=== PATIENT | male | born 1965 | race Caucasian/White ===

== ENCOUNTER 2017-04-06 03:49 | Inpatient (IN) ==
[2017-04-06] MEDS ORDERED: Aspirin 81 MG TAB.CHEW PO ONE (04:05)
[2017-04-06] MEDS ORDERED: Nitroglycerin 0.4 MG TAB.SUBL SL ONE (04:05)
[2017-04-06] MEDS ORDERED: Ondansetron 4 MG/2 ML VIAL IVP ONE (04:05)
--- NOTE | 2017-04-06 04:15 | Emergency Department Note ---
Disposition Clinical Impression: Epigastric pain Disposition: Admitted As Inpatient Condition: Fair Time of Disposition: 08:03 Chest Pain HPI - General Chief Complaint: ED Chest Pain Stated Complaint: chest pain Time Seen by Provider: 04/06/17 04:05 Source: patient, EMS Limitations: no limitations Vital Signs Reviewed: Yes Nursing Notes Reviewed: Yes - History of Present Illness Pt complaint: chest pain Onset (ago): Just [employer] Duration: constant Onset: during rest Pain Location: substernal Severity scale (1-10): 10 Pain Radiation: back Improves with: nothing Worsens with: inspiration Context: other (h/o CAD) Associated symptoms: Reports: nausea, vomiting, diaphoresis Treatments prior to arrival chest pain: none - Related Data Home Medications Medication Instructions Recorded Confirmed Amitriptyline [Elavil] 100 mg PO HS 04/06/17 04/06/17 Aspirin [Lo-Dose Aspirin EC] 81 mg PO DAILY 04/06/17 04/06/17 Atorvastatin Calcium [Lipitor] 80 mg PO HS 04/06/17 04/06/17 Citalopram [CeleXA] 20 mg PO DAILY 04/06/17 04/06/17 Clopidogrel [Plavix] 75 mg PO DAILY 04/06/17 04/06/17 Cyclobenzaprine HCl 5 mg PO TID PRN 04/06/17 04/06/17 Exenatide Microspheres [Bydureon 2 mg SQ MAST 04/06/17 04/06/17 Pen] Gabapentin [Neurontin] 600 mg PO BID 04/06/17 04/06/17 Insulin Glargine [Lantus] 50 unit SQ BID PRN 04/06/17 04/06/17 Lisinopril [Zestril] 10 mg PO DAILY 04/06/17 04/06/17 Metoprolol XL (24 HR) Succ [Toprol 25 mg PO DAILY 04/06/17 04/06/17 XL] hydrOXYzine HCl [Hydroxyzine HCl] 25 mg PO DAILY 04/06/17 04/06/17 Allergies Allergy/AdvReac Type Severity Reaction Status Date / Time No Known Allergies Allergy Verified 04/02/17 22:53 All systems ED: reviewed and negative except as stated. Constitutional: Denies: fever Eyes: Denies: eye discharge ENT ED: Denies: throat pain Cardiovascular: Reports: as per HPI. Denies: palpitations Respiratory: Reports: as per HPI Gastrointestinal: Denies: abdominal pain Genitourinary: Denies: dysuria Musculoskeletal: Reports: as per HPI. Denies: neck pain Integumentary: Denies: rash Neurological: Denies: headache Endocrine: Denies: fatigue Hematological/Lymphatic: Denies: easy bleeding Allergic/Immunologic: Denies: facial swelling Chest Pain PMH - Past Medical History Medical history: Reports: coronary artery disease, diabetes, myocardial infarction Psychiatric history: Reports: anxiety, depression - Social History Smoking Status: Current every day smoker Alcohol use: Reports: none Drug use: Reports: none Physical Exam - General Limitations: no limitations General appearance: alert, in no apparent distress - Head Head exam: normocephalic - Eye Eye exam: Present: EOMI. Absent: conjunctival injection - ENT ENT exam: mucous membranes moist - Neck Neck exam: Present: full ROM - Chest Chest inspection: Present: normal inspection, symmetric chest wall rise, tenderness - Respiratory Respiratory exam: Present: normal lung sounds bilaterally. Absent: respiratory distress - Cardiovascular Cardiovascular exam: Present: regular rate, normal rhythm - Abdominal Exam Abdominal exam: Present: tenderness Abdominal tenderness: Present: RUQ - Extremities Exam Extremities exam: Present: normal inspection, full ROM, normal capillary refill - Back Exam Back exam: Present: full ROM - Neurological Exam Neurological exam: Present: alert - Psychiatric Psychiatric exam: Present: normal affect - Skin Skin exam: Present: warm, dry, intact, normal color. Absent: rash, cyanosis, diaphoresis Course Course Narrative: 51-year-old male arrives by squad from home presents with substernal chest pain. He describes a 10 out of 10. Radiation to his back. Nothing has made it better. It is a history of CAD with stents. He mentions pain with inspiration, and shortness of breath. Pain started when he was sleeping and awoke him from sleep. States his shortness of breath has improved but still persists. It is comminuted with nausea and vomiting. A seen and examined. Nitroglycerin analgesics imaging and workup ordered. EKG upon arrival to the exam room no previous EKGs. - Reevaluation(s) Reevaluation #1: Plan patient's pain appears to be more controlled. He is resting more comfortably. His workup tonight has shown a negative troponin. Chest x-ray unremarkable. Lab work unremarkable. He has had 2 EKGs that showed no acute signs of ischemia. He has gone to CT for his CTA and CT abdomen and the results are pending. Patient was seen by Dr. Rodriguez and we have discussed the patient. We will admit for further evaluation of chest pain and abdominal pain. HOspitlists have been paged. Time: 07:18 Reevaluation #2: This time we are still waiting to hear from the hospitalist. Due to shift changeDue to shift change, care of this patient will be transferred over to [facility] provider, angela Moreno PA-C. He will be handling discussion with hospitalist. Please see his further documentation details. Time: 08:03 Vital Signs Temperature 98.9 F 04/06/17 03:50 Pulse Rate 92 04/06/17 03:50 Respiratory Rate 18 04/06/17 03:50 Blood Pressure 158/99 04/06/17 03:50 O2 Sat by Pulse Oximetry 100 04/06/17 03:50 Temperature 99.1 F 04/06/17 18:58 Pulse Rate 114 04/06/17 18:58 Respiratory Rate 20 04/06/17 18:58 Blood Pressure 115/78 04/06/17 18:58 O2 Sat by Pulse Oximetry 92 04/06/17 15:36 Oxygen Delivery Oxygen Delivery Room Air Chest Pain - Lab Data Result diagrams: 04/06/17 04:30 04/06/17 04:30 Lab Results 04/06/17 04/06/17 04/06/17 Range/Units 04:30 04:30 04:30 WBC 11.3 H (4.3-11.1) K/mcL RBC 5.78 H (4.19-5.50) M/mcL Hgb 16.8 (12.9-16.9) g/dL Hct 48.8 (37.5-50.1) % MCV 84.4 (83.0-100.0) fL MCH 29.1 (28.0-33.3) pg MCHC 34.4 (31.6-35.5) g/dL RDW 12.2 (11.5-14.5) % Plt Count 243 (140-400) K/mcL MPV 10.5 (9.4-12.4) fL Immature Gran % 0.4 (0-4) % Seg Neutrophils % 67.9 % Lymphocytes % 21.6 % Monocytes % 7.0 % Eosinophils % 2.7 % Basophils % 0.4 % Neutrophils # 7.6 (1.6-8.9) K/mcL Lymphocytes # 2.4 (0.6-4.6) K/mcL Monocytes # 0.8 (0.0-1.3) K/mcL Eosinophils # 0.3 (0.0-0.6) K/mcL Basophils # 0.1 (0.0-0.2) K/mcL PT 10.7 (9.4-12.1) Seconds INR 1.0 APTT 33.3 (26.0-36.0) Seconds Sodium 134 L (136-145) mEq/L Potassium 4.4 (3.5-4.5) mEq/L Chloride 98 (98-109) mEq/L Carbon Dioxide 24 (19-29) mEq/L BUN 12 (8-26) mg/dL Creatinine 0.97 (0.72-1.25) mg/dL Est GFR ( Amer) > 60 (> 60) Est GFR (Non-Af Amer) > 60 (> 60) BUN/Creatinine Ratio 12 (6-26) Glucose 289 H (70-99) mg/dL Est Mean Plasma Glucose mg/dl Hemoglobin A1c ( - 5.6) % Calculated Osmolality 288 (280-300) Lactic Acid (0.5-2.2) mmol/L Calcium 9.9 (8.6-10.8) mg/dL Total Bilirubin (0.2-1.2) mg/dL Direct Bilirubin (0.0-0.5) mg/dL Indirect Bilirubin (0.0-1.2) mg/dL AST (5-34) Units/L ALT (0-55) Units/L Alkaline Phosphatase (38-126) Units/L Troponin I (0-0.03) ng/mL Serum Total Protein (6.0-8.3) g/dL Albumin (3.5-5.0) g/dL Globulin (2.4-3.5) g/dL Albumin/Globulin Ratio (1.1-2.2) Lipase (8-78) Units/L Urine Color (Yellow) Urine Clarity (Clear) Urine pH (5.0-8.0) pH Units Ur Specific [place] (1.010-1.025) Urine Protein (Neg-Trace) mg/dL Urine Glucose (UA) (Normal) mg/dL Urine Ketones (Negative) mg/dL Urine Blood (Negative) Urine Nitrite (Negative) Urine Bilirubin (Negative) Urine Urobilinogen (Normal) mg/dL Ur Leukocyte Esterase (Negative) Urine Microscopic RBC (0-3) per hpf Urine Microscopic WBC (0-3) per hpf Ur Squamous Epith Cells (None-Few) per lpf Urine Bacteria (None-Few) per hpf Hyaline Casts (None-Few) per lpf Ur Culture Indicated? (NO) 04/06/17 04/06/17 04/06/17 Range/Units 04:30 04:30 04:30 WBC (4.3-11.1) K/mcL RBC (4.19-5.50) M/mcL Hgb (12.9-16.9) g/dL Hct (37.5-50.1) % MCV (83.0-100.0) fL MCH (28.0-33.3) pg MCHC (31.6-35.5) g/dL RDW (11.5-14.5) % Plt Count (140-400) K/mcL MPV (9.4-12.4) fL Immature Gran % (0-4) % Seg Neutrophils % % Lymphocytes % % Monocytes % % Eosinophils % % Basophils % % Neutrophils # (1.6-8.9) K/mcL Lymphocytes # (0.6-4.6) K/mcL Monocytes # (0.0-1.3) K/mcL Eosinophils # (0.0-0.6) K/mcL Basophils # (0.0-0.2) K/mcL PT (9.4-12.1) Seconds INR APTT (26.0-36.0) Seconds Sodium (136-145) mEq/L Potassium (3.5-4.5) mEq/L Chloride (98-109) mEq/L Carbon Dioxide (19-29) mEq/L BUN (8-26) mg/dL Creatinine (0.72-1.25) mg/dL Est GFR ( Amer) (> 60) Est GFR (Non-Af Amer) (> 60) BUN/Creatinine Ratio (6-26) Glucose (70-99) mg/dL Est Mean Plasma Glucose 226 mg/dl Hemoglobin A1c 9.5 H ( - 5.6) % Calculated Osmolality (280-300) Lactic Acid (0.5-2.2) mmol/L Calcium (8.6-10.8) mg/dL Total Bilirubin 0.5 (0.2-1.2) mg/dL Direct Bilirubin 0.2 (0.0-0.5) mg/dL Indirect Bilirubin 0.3 (0.0-1.2) mg/dL AST 9 (5-34) Units/L ALT 19 (0-55) Units/L Alkaline Phosphatase 156 H (38-126) Units/L Troponin I 0.00 (0-0.03) ng/mL Serum Total Protein 7.4 (6.0-8.3) g/dL Albumin 3.7 (3.5-5.0) g/dL Globulin 3.7 H (2.4-3.5) g/dL Albumin/Globulin Ratio 1.0 L (1.1-2.2) Lipase 28 (8-78) Units/L Urine Color (Yellow) Urine Clarity (Clear) Urine pH (5.0-8.0) pH Units Ur Specific [place] (1.010-1.025) Urine Protein (Neg-Trace) mg/dL Urine Glucose (UA) (Normal) mg/dL Urine Ketones (Negative) mg/dL Urine Blood (Negative) Urine Nitrite (Negative) Urine Bilirubin (Negative) Urine Urobilinogen (Normal) mg/dL Ur Leukocyte Esterase (Negative) Urine Microscopic RBC (0-3) per hpf Urine Microscopic WBC (0-3) per hpf Ur Squamous Epith Cells (None-Few) per lpf Urine Bacteria (None-Few) per hpf Hyaline Casts (None-Few) per lpf Ur Culture Indicated? (NO) 04/06/17 04/06/17 Range/Units 05:26 06:55 WBC (4.3-11.1) K/mcL RBC (4.19-5.50) M/mcL Hgb (12.9-16.9) g/dL Hct (37.5-50.1) % MCV (83.0-100.0) fL MCH (28.0-33.3) pg MCHC (31.6-35.5) g/dL RDW (11.5-14.5) % Plt Count (140-400) K/mcL MPV (9.4-12.4) fL Immature Gran % (0-4) % Seg Neutrophils % % Lymphocytes % % Monocytes % % Eosinophils % % Basophils % % Neutrophils # (1.6-8.9) K/mcL Lymphocytes # (0.6-4.6) K/mcL Monocytes # (0.0-1.3) K/mcL Eosinophils # (0.0-0.6) K/mcL Basophils # (0.0-0.2) K/mcL PT (9.4-12.1) Seconds INR APTT (26.0-36.0) Seconds Sodium (136-145) mEq/L Potassium (3.5-4.5) mEq/L Chloride (98-109) mEq/L Carbon Dioxide (19-29) mEq/L BUN (8-26) mg/dL Creatinine (0.72-1.25) mg/dL Est GFR ( Amer) (> 60) Est GFR (Non-Af Amer) (> 60) BUN/Creatinine Ratio (6-26) Glucose (70-99) mg/dL Est Mean Plasma Glucose mg/dl Hemoglobin A1c ( - 5.6) % Calculated Osmolality (280-300) Lactic Acid 1.8 (0.5-2.2) mmol/L Calcium (8.6-10.8) mg/dL Total Bilirubin (0.2-1.2) mg/dL Direct Bilirubin (0.0-0.5) mg/dL Indirect Bilirubin (0.0-1.2) mg/dL AST (5-34) Units/L ALT (0-55) Units/L Alkaline Phosphatase (38-126) Units/L Troponin I (0-0.03) ng/mL Serum Total Protein (6.0-8.3) g/dL Albumin (3.5-5.0) g/dL Globulin (2.4-3.5) g/dL Albumin/Globulin Ratio (1.1-2.2) Lipase (8-78) Units/L Urine Color Yellow (Yellow) Urine Clarity Cloudy A (Clear) Urine pH 7.5 (5.0-8.0) pH Units Ur Specific [place] > 1.030 H (1.010-1.025) Urine Protein Negative (Neg-Trace) mg/dL Urine Glucose (UA) >=1000 H (Normal) mg/dL Urine Ketones Negative (Negative) mg/dL Urine Blood Negative (Negative) Urine Nitrite Negative (Negative) Urine Bilirubin Negative (Negative) Urine Urobilinogen Normal (Normal) mg/dL Ur Leukocyte Esterase Negative (Negative) Urine Microscopic RBC 0-3 (0-3) per hpf Urine Microscopic WBC 0-3 (0-3) per hpf Ur Squamous Epith Cells Few (None-Few) per lpf Urine Bacteria None Seen (None-Few) per hpf Hyaline Casts None Seen (None-Few) per lpf Ur Culture Indicated? NO (NO) Attestation Statement - Attestation Attestation: I, Shaheed Rodriguez DO have provided [id number] time during the care of this patient. Detailed review the presentation, symptoms, medical history were discussed and reviewed with the mid-level provider (Emanuel Thornton PA-C/TRACK INSPECTOR. Medical intervention labs and imaging studies were reviewed in detail. See full documentation of physical exam and course of care in the mid-level provider 's note. I agree with the determined course of care, medical interventio,n and disposition put forth by the mid-level provider. See below documentation for changes or alterations in documentation. 51-year-old male presents to emergency room with acute onset of epigastric right -sided upper quadrant abdominal pain. Symptoms have caused nausea vomiting. He also has a significant cardiac history of multiple catheterizations and stents. Patient follows up at an outside facility and does not have any previous EKGs this facility. Patient denies fevers or chills nausea vomiting diarrhea chest pain shortness of breath headache or vision changes prior to these events. Main complaint on presentation appears uncontrolled abdominal pain and symptoms along with nausea and vomiting. Patient cannot describe this as being similar to his previous myocardial infarction. EKG collected immediately on presentation shows possible old inferior wall myocardial infarction but no acute signs of ST segment elevation or interval abnormalities. Patient has no reciprocal changes. Nitroglycerin was tried here without any relief the symptoms. Single dose of Dilaudid was given with no significant change. Repeat doses given patient had some mild vaginosis symptoms but still has persistent pain and nausea. Fentanyl this time. Patient is also concerning for possible dissection or aneurysm. Vital signs been stable. Bedside ultrasound was attempted but the patient has a large body habitus the previous anterior ventral hernia. He has never had any incarceration or entrapment. Lungs are clear heart is regular. Abdomen is soft distended with no guarding no rigidity but he has diffuse tenderness worse in the upper epigastric area. Patient moves all 4 extremities. Symptoms are difficult to control this time. Medication fluids and Ativan given for pain and symptom treatment at this point. Disposition will be after imaging is resulted. No signs of the presentation physical exam noted prior. See detailed physical exam and the mid-level provider's notes as well as a medical decision making, medical intervention, and disposition. Patient be signed out to the daytime physician Dr. tod asencio. Due to presentation symptoms medical history as well as recommendation for admission for cardiac evaluation of the CT imaging is negative were discussed and reviewed. Patient is course of care will be established by the mid-level provider and the daytime mid-level provider. Consultations and intervention will be reviewed and documented as such. See detailed documentation and the mid -level provider's notes of the medical intervention imaging studies including CT angiography of the chest and abdomen that were negative and the recommendation for admission. Consultations completed and admission process by the daytime position and mid-level provider.
[2017-04-06] MEDS ORDERED: *HR* HYDROmorphone (PF) 1 MG/ML SYRINGE IVP ONE ×2 (04:21→04:52)
[2017-04-06 04:39] LABS: Basophils # 0.1 K/mcL (0.0-0.2); Basophils % 0.4 %; Eosinophils # 0.3 K/mcL (0.0-0.6); Eosinophils % 2.7 %; Hematocrit 48.8 % (37.5-50.1); Hemoglobin 16.8 g/dL (12.9-16.9); Immature Granulocytes % 0.4 % (0-4); Lymphocytes # 2.4 K/mcL (0.6-4.6); Lymphocytes % 21.6 %; Mean Corpuscular HGB Conc 34.4 g/dL (31.6-35.5); Mean Corpuscular Hemoglobin 29.1 pg (28.0-33.3); Mean Corpuscular Volume 84.4 fL (83.0-100.0); Mean Platelet Volume 10.5 fL (9.4-12.4); Monocytes # 0.8 K/mcL (0.0-1.3); Neutrophils # 7.6 K/mcL (1.6-8.9); Platelet Count 243 K/mcL (140-400); Red Blood Count 5.78 M/mcL (4.19-5.50); Red Cell Distribution Width 12.2 % (11.5-14.5); Segmented Neutrophils % 67.9 %
[2017-04-06 04:43] LABS: Prothrombin Time 10.7 Seconds (9.4-12.1)
[2017-04-06 04:45] LABS: Activated Partial Thrombo Time 33.3 Seconds (26.0-36.0)
[2017-04-06 04:50] LABS: BUN/Creatinine Ratio 12 (6-26); Blood Urea Nitrogen 12 mg/dL (8-26); Calcium 9.9 mg/dL (8.6-10.8); Carbon Dioxide 24 mEq/L (19-29); Chloride 98 mEq/L (98-109); Glucose 289 mg/dL (70-99); Osmolality,Calculated 288 (280-300); Potassium 4.4 mEq/L (3.5-4.5); Sodium 134 mEq/L (136-145); eGFR For African Americans > 60 (> 60); eGFR For Non-African Americans > 60 (> 60)
[2017-04-06 04:51] LABS: Albumin 3.7 g/dL (3.5-5.0); Bilirubin,Direct 0.2 mg/dL (0.0-0.5); Bilirubin,Indirect 0.3 mg/dL (0.0-1.2); Bilirubin,Total 0.5 mg/dL (0.2-1.2); Globulin 3.7 g/dL (2.4-3.5); Total Protein 7.4 g/dL (6.0-8.3)
[2017-04-06] MEDS ORDERED: *HR* FentaNYL (PF) 100 MCG/2 ML VIAL IVP ONE (05:03)
[2017-04-06] MEDS ORDERED: *HR* LORazepam 2 MG/ML VIAL IVP ONE (05:05)
[2017-04-06 07:08] LABS: Bilirubin,Urine Negative (Negative); Blood,Urine Negative (Negative); Clarity,Urine Cloudy (Clear); Color,Urine Yellow (Yellow); Glucose,Urine (UA) >=1000 mg/dL (Normal); Ketones,Urine Negative (Negative); Leukocyte Esterase,Urine Negative (Negative); Nitrite,Urine Negative (Negative); PH,Urine 7.5 pH Units (5.0-8.0); Protein,Urine Negative (Neg-Trace); Specific Gravity,Urine > 1.030 (1.010-1.025); Urobilinogen,Urine Normal (Normal)
[2017-04-06 07:10] LABS: Bacteria,Urine None Seen per hpf (None-Few); Hyaline Casts,Urine None Seen per lpf (None-Few); RBC,Urine 0-3 per hpf (0-3); Squamous Epithelial Cell,Urine Few per lpf (None-Few); WBC,Urine 0-3 per hpf (0-3)
[2017-04-06] MEDS ORDERED: Naloxone 0.4 MG/ML INJ IVP PRN (12:59)
[2017-04-06] MEDS ORDERED: *HR* HYDROcodone/Acet 5/325 mg TABLET PO PRN (12:59)
[2017-04-06] MEDS ORDERED: Ondansetron 4 MG/2 ML VIAL IVP PRN (12:59)
--- NOTE | 2017-04-06 13:56 | Internal Med History&Physical ---
Date of Encounter: 04/06/17 Time of Encounter: 12:00 Assessment and Plan (1) Chest pain Current visit: Yes Status: Acute Will place the pt into Tele for observation Definitely need to r/o ACS EKG - NSR, NO ST elevation / depression noticed will check FLP in AM Cont ASA, Plavix and Metoprolol So far negative troponin check serial troponin Cont JOSE ROBERTO protocol Since he is high risk for ACS with h/o CAD, DM, HTN and Morbid obesity -- Will get stress test in AM Qualifiers: Qualified Code(s): R07.9 - Chest pain, unspecified (2) RUQ abdominal pain Current visit: Yes Status: Acute Reviewed his CT of abd - no acute cholecystitis -- however there was some questionable gallstones will get U/S od RUQ This is the first time he had RUQ abd pain.. cont close monitoring for now IV analgesics and PPI (3) HTN (hypertension) Current visit: Yes Status: Acute Stable resumed all his home meds Qualifiers: Qualified Code(s): I10 - Essential (primary) hypertension (4) DM2 (diabetes mellitus, type 2) Current visit: Yes Status: Acute on Levemir + ISS will get HBA1C in AM Qualifiers: Qualified Code(s): E11.9 - Type 2 diabetes mellitus without complications; Z79.4 - intermodal customer service (current) use of insulin (5) CAD in [place] artery Current visit: Yes Status: Chronic Resumed all his home meds Internal Medicine - H&P: HPI Chief complaint: Chest pain Admitted From: Emergency Dept Plans for Post Hospital Care: Home History of present illness: Mr. Green is a 51 year old male with known PMH of HTN, HLD, Morbid obesity, CAD s/p cardiac stents was presentd to our ER c/o sudden onset Left chest wall and RUQ abd pain, radiating to his Rt side of neck and upper back. He also had nasuea and a couple of vomitings. Now he is resting comfortably in the bed. He denied any more CP / SOB / Abd pain. Last night when he had CP , it was 10/10 in severity, sharp type pain. Past Med Surg Social Fam HX - Past Medical History Medical history: coronary artery disease, diabetes, myocardial infarction Psychiatric history: anxiety, depression - Past Surgical History Surgical History: no surgical history - Social History Smoking Status: Current every day smoker Smokeless Tobacco Status: Yes Alcohol use: none Drug use: none Internal Medicine - H&P: Meds Amitriptyline [Elavil] 100 mg PO HS 04/06/17 [History] Aspirin [Lo-Dose Aspirin EC] 81 mg PO DAILY 04/06/17 [History] Atorvastatin Calcium [Lipitor] 80 mg PO HS 04/06/17 [History] Citalopram [CeleXA] 20 mg PO DAILY 04/06/17 [History] Clopidogrel [Plavix] 75 mg PO DAILY 04/06/17 [History] Cyclobenzaprine HCl 5 mg PO TID PRN 04/06/17 [History] Exenatide Microspheres [Bydureon Pen] 2 mg SQ MAST 04/06/17 [History] Gabapentin [Neurontin] 600 mg PO BID 04/06/17 [History] Insulin Glargine [Lantus] 50 unit SQ BID PRN 04/06/17 [History] Lisinopril [Zestril] 10 mg PO DAILY 04/06/17 [History] Metoprolol XL (24 HR) Succ [Toprol XL] 25 mg PO DAILY 04/06/17 [History] hydrOXYzine HCl [Hydroxyzine HCl] 25 mg PO DAILY 04/06/17 [History] 3 Allergy/AdvReac Type Severity Reaction Status Date / Time No Known Allergies Allergy Verified 04/02/17 22:53 All Systems PM: A 10-system review of systems was performed and is negative for pertinent findings except as documented above in the HPI. Review of systems: All the systems are reviewed everything is benign except the systems and symptoms I mentioned in the history of present illness - Constitutional Vitals: Temp Pulse Resp BP Pulse Ox 97.8 F 90 14 125/74 93 04/06/17 10:56 04/06/17 10:56 04/06/17 10:56 04/06/17 10:56 04/06/17 10:56 General appearance: Present: A&O X 3, pleasant, no acute distress - Head Head exam: Present: atraumatic, normal inspection - Respiratory Respiratory exam: Present: decreased breath sounds. Absent: accessory muscle use, rales, rhonchi, wheezes - Cardiovascular Cardiovascular exam: Present: RRR, +S1, +S2. Absent: diastolic murmur, gallop, rubs, systolic murmur - GI/Abdominal GI/Abdominal exam: Present: distended, normal bowel sounds, soft, no peritoneal signs. Absent: tenderness - Extremities Exam Extremities exam: Absent: calf tenderness, pedal edema, tenderness - Psychiatric Psychiatric exam: Present: normal affect, normal mood Internal Med - H&P Results - Labs CBC & Chem 7: 04/06/17 04:30 04/06/17 04:30
[2017-04-06] MEDS ORDERED: *HR* Dextrose 50 % in Water (Syg) 50 ML SYRINGE IVP PRN (13:58)
[2017-04-06] MEDS ORDERED: D5% in Water 1,000 ML IVC PRN (13:58)
[2017-04-06] MEDS ORDERED: Dextrose Gel 15 GM PO PRN ×2 (13:58)
[2017-04-06] MEDS: Metoprolol XL (24 HR) Succ 25 MG TAB.ER.24H PO SCH (14:33)
[2017-04-06 14:38] LABS: Hemoglobin A1C 9.5 %
[2017-04-06] MEDS: Insulin DETEMIR 100 UNIT/ML X5UNITS SQ SCH ×2 (14:45→22:06)
[2017-04-06] MEDS: *HR* Morphine 2 MG/ML SYRINGE IVP PRN (17:16)
[2017-04-06] MEDS ORDERED: 0.9 % Sodium Chloride 250 ML ONE ×2 (18:18→18:39)
[2017-04-06] MEDS: Insulin LISPRO 300 UNITS/3 ML VIAL SQ SCH (18:29)
[2017-04-06] MEDS ORDERED: 0.9 % Sodium Chloride 250 ML IVC ONE ×2 (18:31→18:45)
--- NOTE | 2017-04-06 18:38 | Electrocardiograph Report ---
[place] [id number] Test Date: 2017-04-06 Pat Name: Brandon Green Department: [id number] Room: 2NE25 Gender: M Dovetailer: EMILY : 1965 Requested By: Mitzi Redmond Order Number: [id number] Reading MD: Elvia Mojica Measurements Intervals Dexter Rate: 82 P: 54 ID: [id number] QRS: 1 QRSD: 95 T: 64 QT: 343 QTc: 382 Interpretive Statements SINUS RHYTHM INFERIOR MYOCARDIAL INFARCTION, PROBABLY OLD Electronically Signed On 04-06-2017 18:36:27 EDT by Elvia Mojica
[2017-04-06] MEDS: Famotidine 20 MG/2 ML VIAL IVP SCH (18:40)
[2017-04-06] MEDS: Gabapentin 300 MG CAPSULE PO SCH (22:06)
[2017-04-07 06:08] LABS: Basophils % 0.1 %; Eosinophils # 0.1 K/mcL (0.0-0.6); Eosinophils % 0.5 %; Hematocrit 42.5 % (37.5-50.1); Hemoglobin 14.8 g/dL (12.9-16.9); Immature Granulocytes % 0.5 % (0-4); Immature Platelets 6.5 % (1.1-6.1); Lymphocytes # 1.5 K/mcL (0.6-4.6); Lymphocytes % 8.3 %; Mean Corpuscular HGB Conc 34.8 g/dL (31.6-35.5); Mean Corpuscular Hemoglobin 29.7 pg (28.0-33.3); Mean Corpuscular Volume 85.2 fL (83.0-100.0); Mean Platelet Volume 10.7 fL (9.4-12.4); Monocytes # 1.1 K/mcL (0.0-1.3); Neutrophils # 14.8 K/mcL (1.6-8.9); Platelet Count 200 K/mcL (140-400); Red Blood Count 4.99 M/mcL (4.19-5.50); Red Cell Distribution Width 12.2 % (11.5-14.5); Segmented Neutrophils % 84.6 %
[2017-04-07] MEDS: Famotidine 20 MG/2 ML VIAL IVP SCH (06:35)
[2017-04-07 06:43] LABS: Alanine Aminotransferase 11 Units/L (0-55); Albumin/Globulin Ratio 0.8 (1.1-2.2); Alkaline Phosphatase 130 Units/L (38-126); Aspartate Amino Transferase 11 Units/L (5-34); BUN/Creatinine Ratio 16 (6-26); Blood Urea Nitrogen 12 mg/dL (8-26); Calcium 8.9 mg/dL (8.6-10.8); Carbon Dioxide 23 mEq/L (19-29); Chloride 98 mEq/L (98-109); Chol/HDL Ratio 3.9 (0-4.9); Cholesterol 121 mg/dL (< 200); Globulin 3.6 g/dL (2.4-3.5); Glucose 239 mg/dL (70-99); HDL Cholesterol 31 mg/dL (40-59); LDL Cholesterol,Calculated 69 mg/dL (0-99); Magnesium 1.9 mg/dL (1.6-2.6); Osmolality,Calculated 278 (280-300); Potassium 4.3 mEq/L (3.5-4.5); Sodium 130 mEq/L (136-145); Total Protein 6.4 g/dL (6.0-8.3); Triglycerides 103 mg/dL (< 150); eGFR For African Americans > 60 (> 60); eGFR For Non-African Americans > 60 (> 60)
[2017-04-07 06:44] LABS: Albumin 2.8 g/dL (3.5-5.0); Bilirubin,Total 1.6 mg/dL (0.2-1.2)
[2017-04-07] MEDS ORDERED: Regadenoson 0.4 MG/5 ML SYRINGE IVP ONE (06:53)
[2017-04-07] MEDS ORDERED: MetroNIDAZOLE 500 MG/100 ML 500 MG/100 ML BAG IVPB SCH (08:00)
[2017-04-07] MEDS: Insulin LISPRO 300 UNITS/3 ML VIAL SQ SCH ×4 (08:55→21:28)
[2017-04-07] MEDS ORDERED: Metoprolol XL (24 HR) Succ 25 MG TAB.ER.24H PO SCH (09:00)
[2017-04-07] MEDS: *HR* Morphine 2 MG/ML SYRINGE IVP PRN (09:00)
[2017-04-07] MEDS ORDERED: Aspirin Enteric Coated 81 MG Tablet PO SCH (09:00)
[2017-04-07] MEDS: Gabapentin 300 MG CAPSULE PO SCH ×2 (11:23→21:29)
[2017-04-07] MEDS: Insulin DETEMIR 100 UNIT/ML X5UNITS SQ SCH ×2 (11:24→21:27)
[2017-04-07] MEDS: Metoprolol XL (24 HR) Succ 25 MG TAB.ER.24H PO SCH (11:24)
--- NOTE | 2017-04-07 12:55 | General Surgery Consult Note ---
Date of Encounter: 04/07/17 Time of Encounter: 12:53 Assessment and Plan (1) Cholecystitis, acute Current Visit: Yes Status: Acute Leukocytosis, abdominal exam, and history are consistent with acute cholecystitis. Laparoscopic cholecystectomy is recommended. Risks and benefits were reviewed with the patient and his and patient is agreeable to proceed. We will plan for surgical intervention in the next 24 to 48 hours. -NPO -discomfort management -will treat preoperatively with respiratory treatments (Duonebs now and then Q2H ) and incentive spirometry use in the setting of significant smoking history. -Cipro/Flagyl per medicine (2) Smoking addiction Current Visit: Yes Status: Acute Smoking cessation is strongly encouraged. Duonebs per plan above. Decrease to Q4H after surgery (3) RUQ abdominal pain Current Visit: Yes Status: Acute Positive Esquivel's sign. See plan above (4) CAD in [place] artery Current Visit: Yes Status: Chronic AMI has been ruled out this admission. He denies symptoms of angina. History of Present Illness Consult date: 04/07/17 (Tammy Gorman) Reason for consult: other (Concern for Acute Cholecystitis) Requesting physician: Abdi Redmond History of present illness: Brandon Green is a 51 year old [ ] male with known history of HTN, HLD, Morbid obesity, ASHD s/p cardiac stents (last placed 2014), smoking history of 2 packs per day for greater than 41 years, who presented for c/o sudden onset Left chest wall and RUQ abd pain, radiating to his Rt side of neck and upper back, associated with nausea and vomiting. His hospital course has included r/o AMI, an abdominal ultrasound consistent with biliary sludge and gallbladder wall thickening, mild to moderate hepatic steatosis, and questionable cholecystitis on CT. Hida scan was negative. His white blood cell count 17.5, total bilirubin is 1.6 Alk phos is elevated at 130. He currently states his abd pain is sharp, relieved by pain medications, denies nausea or vomiting currently. He denies chest pain or shortness of breath. He denies changes in bowel habits, constipation, diarrhea, black bloodier tarry stool. He endorses dark urine since he has been in the hospital. He reports a surgical history of multiple orthopedic surgeries as well as a hernia repair (which he states returned). We have been asked to evaluate the patient for possible acute cholecystitis. Past Med Surg Social Fam HX - Past Medical History Medical history: coronary artery disease, diabetes, myocardial infarction Psychiatric history: anxiety, depression - Past Surgical History Surgical History: angioplasty/stent (2014 ([facility]) and prior to that was in [place]), herniorrhaphy, orthopedic, other - Social History Smoking Status: Current every day smoker Packs per day: 2 Smokeless Tobacco Status: Yes Alcohol use: none Drug use: none Current living situation: Home - Independent Recent Out of Country Travel Within the Last 8 Weeks: No Exposure or Possible Exposure to Illness During Travel: No Medications and Allergies Amitriptyline [Elavil] 100 mg PO HS 04/06/17 [History] Aspirin [Lo-Dose Aspirin EC] 81 mg PO DAILY 04/06/17 [History] Atorvastatin Calcium [Lipitor] 80 mg PO HS 04/06/17 [History] Citalopram [CeleXA] 20 mg PO DAILY 04/06/17 [History] Clopidogrel [Plavix] 75 mg PO DAILY 04/06/17 [History] Cyclobenzaprine HCl 5 mg PO TID PRN 04/06/17 [History] Exenatide Microspheres [Bydureon Pen] 2 mg SQ MAST 04/06/17 [History] Gabapentin [Neurontin] 600 mg PO BID 04/06/17 [History] Insulin Glargine [Lantus] 50 unit SQ BID PRN 04/06/17 [History] Lisinopril [Zestril] 10 mg PO DAILY 04/06/17 [History] Metoprolol XL (24 HR) Succ [Toprol XL] 25 mg PO DAILY 04/06/17 [History] hydrOXYzine HCl [Hydroxyzine HCl] 25 mg PO DAILY 04/06/17 [History] 3 Allergy/AdvReac Type Severity Reaction Status Date / Time No Known Allergies Allergy Verified 04/02/17 22:53 Review of Systems All systems PM: A 10-system review of systems was performed and is negative for pertinent findings except as documented above in the HPI. General Surgery Exam Initial Vital Signs Temp Pulse Resp BP Pulse Ox 98.9 F 92 18 158/99 100 04/06/17 03:50 04/06/17 03:50 04/06/17 03:50 04/06/17 03:50 04/06/17 03:50 - General physical appearance well developed, well nourished, no distress - Eyes PERRL, normal ocular movement - ENT normal nares, normal mucosa, no congestion, atraumatic, normocephalic - Neck trachea midline, no venous distension - Respiratory clear to percussion, other (Decreased breath sounds. Expiratory wheezing bilateral.) - Cardiovascular Cardiovascular exam: Present: RRR, distant heart sounds - Abdomen Abdomen general surgery: Present: bowel sounds present, soft, tender, surgical scars Abdominal Tenderness: Present: RUQ Hernia: Present: umbilical - Integumentary Integumentary general surgery: Present: warm and dry, no abnormal pigmentation - Neurologic Present: CN 2-12 grossly intact, normal coordination, normal sensation - Musculoskeletal Present: normal gait, normal posture - Psychiatric Psychiatric general surgery: Present: appropriate, oriented to person, oriented to place, oriented to time, speech is normal, memory intact, other (Drowsy) Exam Initial Vital Signs Temp Pulse Resp BP Pulse Ox 98.9 F 92 18 158/99 100 04/06/17 03:50 04/06/17 03:50 04/06/17 03:50 04/06/17 03:50 04/06/17 03:50 Results - Labs 04/07/17 05:17 04/07/17 05:17 Abnormal lab results WBC 17.5 K/mcL (4.3-11.1) H D 04/07/17 05:17 Neutrophils # 14.8 K/mcL (1.6-8.9) H 04/07/17 05:17 Immature Plt Fraction 6.5 % (1.1-6.1) H 04/07/17 05:17 Sodium 130 mEq/L (136-145) L 04/07/17 05:17 Glucose 239 mg/dL (70-99) H 04/07/17 05:17 POC Glucose 147 (58-89) H 04/06/17 20:21 Hemoglobin A1c 9.5 % (-5.6) H 04/06/17 04:30 Calculated Osmolality 278 (280-300) L 04/07/17 05:17 Total Bilirubin 1.6 mg/dL (0.2-1.2) H D 04/07/17 05:17 Alkaline Phosphatase 130 Units/L (38-126) H 04/07/17 05:17 Albumin 2.8 g/dL (3.5-5.0) L D 04/07/17 05:17 Globulin 3.6 g/dL (2.4-3.5) H 04/07/17 05:17 Albumin/Globulin Ratio 0.8 (1.1-2.2) L 04/07/17 05:17 HDL Cholesterol 31 mg/dL (40-59) L 04/07/17 05:17 Urine Clarity Cloudy (Clear) A 04/06/17 06:55 Ur Specific [place] > 1.030 (1.010-1.025) H 04/06/17 06:55 Urine Glucose (UA) >=1000 mg/dL (Normal) H 04/06/17 06:55 Diabetes panel 04/07/17 Range/Units 05:17 Sodium 130 L (136-145) mEq/L Potassium 4.3 (3.5-4.5) mEq/L Chloride 98 (98-109) mEq/L Carbon Dioxide 23 (19-29) mEq/L BUN 12 (8-26) mg/dL Creatinine 0.77 (0.72-1.25) mg/dL Glucose 239 H (70-99) mg/dL Calcium 8.9 (8.6-10.8) mg/dL AST 11 (5-34) Units/L ALT 11 (0-55) Units/L Alkaline Phosphatase 130 H (38-126) Units/L Albumin 2.8 L D (3.5-5.0) g/dL Triglycerides 103 (< 150) mg/dL HDL Cholesterol 31 L (40-59) mg/dL Calcium panel 04/07/17 Range/Units 05:17 Calcium 8.9 (8.6-10.8) mg/dL Albumin 2.8 L D (3.5-5.0) g/dL Pituitary panel 04/07/17 Range/Units 05:17 Sodium 130 L (136-145) mEq/L Potassium 4.3 (3.5-4.5) mEq/L Chloride 98 (98-109) mEq/L Carbon Dioxide 23 (19-29) mEq/L BUN 12 (8-26) mg/dL Creatinine 0.77 (0.72-1.25) mg/dL Glucose 239 H (70-99) mg/dL Calcium 8.9 (8.6-10.8) mg/dL Adrenal panel 04/07/17 Range/Units 05:17 Sodium 130 L (136-145) mEq/L Potassium 4.3 (3.5-4.5) mEq/L Chloride 98 (98-109) mEq/L Carbon Dioxide 23 (19-29) mEq/L BUN 12 (8-26) mg/dL Creatinine 0.77 (0.72-1.25) mg/dL Glucose 239 H (70-99) mg/dL Calcium 8.9 (8.6-10.8) mg/dL Total Bilirubin 1.6 H D (0.2-1.2) mg/dL AST 11 (5-34) Units/L ALT 11 (0-55) Units/L Alkaline Phosphatase 130 H (38-126) Units/L Albumin 2.8 L D (3.5-5.0) g/dL All other labs normal. - Imaging Additional studies: Chest X-Ray 04/06/17 04:05 IMPRESSION: Negative portable chest. D/ / Hay Menendez MD / Hay Menendez MD Interpreting Provider: Hay Menendez MD Chest CTA 04/06/17 04:53 IMPRESSION: 1. No evidence of aortic aneurysm. Adequate thoracic aortic opacification with no dissection. Limited abdominal aortic opacification with limited evaluation for dissection. 2. Aortic valve and coronary calcifications. 3. No acute pulmonary process. 4. No acute abdominal/pelvic process. 5. Hepatic steatosis. Probable cholelithiasis with no evidence of acute cholecystitis. 6. Small fat containing right paramedian supraumbilical abdominal ventral hernia. D/ / 04/06/2017 07:19:59 Jerman Delgado MD / dirk Interpreting Provider: Jerman Delgado MD Abdomen CTA 04/06/17 04:54 IMPRESSION: 1. No evidence of aortic aneurysm. Adequate thoracic aortic opacification with no dissection. Limited abdominal aortic opacification with limited evaluation for dissection. 2. Aortic valve and coronary calcifications. 3. No acute pulmonary process. 4. No acute abdominal/pelvic process. 5. Hepatic steatosis. Probable cholelithiasis with no evidence of acute cholecystitis. 6. Small fat containing right paramedian supraumbilical abdominal ventral hernia. D/ / 04/06/2017 07:19:59 Jerman Delgado MD / idrk Interpreting Provider: Jerman Delgado MD Abdomen Ultrasound 04/06/17 20:30 IMPRESSION: 1. Biliary sludge and edematous gallbladder wall thickening without findings of cholelithiasis. Acalculous cholecystitis is not excluded. Consider further evaluation with a nuclear medicine hepatobiliary scan if there are clinical findings of cholecystitis. 2. Mild to moderate hepatic steatosis with possible hepatomegaly. 3. Right renal cyst for which no follow-up is recommended. D/ / Joselo Jennings MD / Joselo Jennings MD Interpreting Provider: Joselo Jennings MD Bile Acid Absorption NM 04/07/17 08:00 IMPRESSION: No convincing scintigraphic evidence of acute cholecystitis. D/ / Sean Pandya MD / Sean Pandya MD Interpreting Provider: Sean Pandya MD Consult Discharge Plan - Plan Referrals: Mao Huff MD [Primary Care Provider] -
[2017-04-07] MEDS ORDERED: Lidocaine -MPF 2% 2 ML VIAL ONE (13:31)
[2017-04-07] MEDS ORDERED: *HR* Succinylcholine 200 MG/10 ML VIAL IVP ONE (13:31)
[2017-04-07] MEDS ORDERED: Dexamethasone 4 MG/ML VIAL ONE (13:31)
[2017-04-07] MEDS ORDERED: *HR* Propofol 200 MG/20 ML VIAL IVP ONE (13:31)
[2017-04-07] MEDS ORDERED: *HR* FentaNYL (PF) 100 MCG/2 ML VIAL ONE ×2 (13:31→15:04)
[2017-04-07] MEDS ORDERED: *HR* Rocuronium Bromide 50 MG/5 ML VIAL ONE (13:31)
[2017-04-07] MEDS ORDERED: *HR* Midazolam HCl 2 MG/2 ML VIAL ONE (13:31)
--- NOTE | 2017-04-07 13:52 | Anesthesia Evaluation PreOp ---
Date of Encounter: 04/07/17 Time of Encounter: 13:50 - Past History Planned Operation: [facility] Cardiac History: IA, HTN, Cardiac Stent (x7 last one 2 years ago), Other (Pt states stress test done 6 months ago at outside institution was "good") Pulmonary History: Smoker, Pack/yr (2ppd) CHANNEL MAN History: Denies Any Significant HX Other Medical History: Diabetes Type II Anesthesia History: Past Anesthesia (Hernia, Multiple orthopedic sx) Alcohol Use: none Drug use: none Medications and Allergies Amitriptyline [Elavil] 100 mg PO HS 04/06/17 [History] Aspirin [Lo-Dose Aspirin EC] 81 mg PO DAILY 04/06/17 [History] Atorvastatin Calcium [Lipitor] 80 mg PO HS 04/06/17 [History] Citalopram [CeleXA] 20 mg PO DAILY 04/06/17 [History] Clopidogrel [Plavix] 75 mg PO DAILY 04/06/17 [History] Cyclobenzaprine HCl 5 mg PO TID PRN 04/06/17 [History] Exenatide Microspheres [Bydureon Pen] 2 mg SQ MAST 04/06/17 [History] Gabapentin [Neurontin] 600 mg PO BID 04/06/17 [History] Insulin Glargine [Lantus] 50 unit SQ BID PRN 04/06/17 [History] Lisinopril [Zestril] 10 mg PO DAILY 04/06/17 [History] Metoprolol XL (24 HR) Succ [Toprol XL] 25 mg PO DAILY 04/06/17 [History] hydrOXYzine HCl [Hydroxyzine HCl] 25 mg PO DAILY 04/06/17 [History] 3 Allergy/AdvReac Type Severity Reaction Status Date / Time No Known Allergies Allergy Verified 04/02/17 22:53 - Meds/Allergy Pre-op Review Medications Reviewed: Yes Allergies Reviewed: Yes Beta Blockers on Current Med List: Yes If Beta Blockers taken, Date/Time (Last Dose taken): 11:24 04/07/17 Anesthesia Results - Labs 04/07/17 05:17 04/07/17 05:17 - Imaging EKG: image reviewed (SINUS RHYTHM INFERIOR MYOCARDIAL INFARCTION, PROBABLY OLD) Anesthesia Exam O2 Sat Weight 125.3 kg O2 Sat by Pulse Oximetry 92 O2 Sat by Pulse Oximetry 93 O2 Sat by Pulse Oximetry 93 O2 Sat by Pulse Oximetry 92 Vital Signs Temp Pulse Resp BP Pulse Ox 98.9 F 92 18 158/99 100 04/06/17 03:50 04/06/17 03:50 04/06/17 03:50 04/06/17 03:50 04/06/17 03:50 Vital Signs/O2 Sat, Most Current Temp Pulse Resp BP Pulse Ox 98.0 F 74 12 103/64 92 04/07/17 10:52 04/07/17 10:52 04/07/17 10:52 04/07/17 10:52 04/07/17 10:52 Height: 6'1'' Weight: 276# NPO (# of Hours): > 8 hrs Pain Scale: 0 Pain Scale Used: Numeric (1 - 10) - HEENT Pupil (Motor): Pupils equal, EOMI Mallampati: II Teeth: Edentulous Oral Opening: Greater than 3 - CHANNEL MAN LOC: Oriented CHANNEL MAN Motor: Normal RUE, Normal LUE, Normal RLE, Normal LLE, Normal Face CHANNEL MAN Sensory: Normal: RUE, LUE, RLE, LLE, Face - Cardiac Rhythm: Regular Murmur: None JVD: No Carotid Bruit: No - Pulmonary Breath Sounds: bilateral Clear Respiratory Effort: Symmetrical Anesthesia Assess/Plan ASA Score: 3 Modified Arlene Scale for Level of Consciousness: Cooperative, oriented, and tranquil Anesthetic Plan: General, Regional Monitoring Plan: Standard Monitors Recovery Plan: PACU
[2017-04-07] MEDS ORDERED: Albuterol 2.5 MG/3 ML NEBULIZER IH ONE (14:06)
[2017-04-07] MEDS ORDERED: Albuterol 2.5 MG/3 ML NEBULIZER ONE (14:09)
[2017-04-07] MEDS ORDERED: Lidocaine -MPF 4% 5 ML AMPUL ONE (14:31)
--- NOTE | 2017-04-07 14:31 | Electrocardiograph Report ---
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
[2017-04-07] MEDS ORDERED: Ketorolac 30 MG/ML VIAL ONE (15:02)
[2017-04-07] MEDS: Ipratropium/Albuterol Neb 3 ML IH SCH ×3 (15:16→20:06)
--- NOTE | 2017-04-07 15:25 | Operative Note ---
Date of procedure: 04/07/17 Pre-op diagnosis: Acute cholecystitis Post-op diagnosis: same Procedure: Laparoscopic cholecystectomy with cholangiogram Anesthesia: LESLIE Surgeon: Evan Gorman Estimated blood loss (cc): 28 Specimen: Gallbladder Condition: stable Disposition: same day Procedure in Detail: After informed consent, the patient was taken to the operating room placed in the supine position. After adequate sedation and anesthesia the abdomen was prepped and draped. 4 incisions were made and the abdomen and a 5 mm cannulas placed above the umbilicus. Once in the abdomen and a pneumoperitoneum was created. The 3 additional cannulas were then placed. Gallbladder was identified and found to be inflamed with adherent omentum. Once this was stripped away it was retracted and the cystic duct was skeletonized. A cholangiogram was performed through the cystic duct utilizing a Gordon clamp. While performing the cholangiogram was able to identify hepatic radicles, common hepatic duct, common bile duct, and duodenum. No stones were identified. 2 clips were then placed proximally and one distally. The cystic duct was transected and the gallbladder was resected off the liver surface. Posterior aspect of the gallbladder was gangrenous. Once it was removed a 19- [place] Cory drain was placed in the gallbladder fossa. It was placed through 5 mm cannula site on the right. Pneumoperitoneum was evacuated. The remainder of the port sites were closed. The skin was then closed with 4-0 Vicryl suture in inverted interrupted fashion. Dermabond specimens skin incisions. He tolerated the procedure well.
[2017-04-07] MEDS ORDERED: Neostigmine Methylsulfate 3 MG/3 ML SYRINGE ONE (15:40)
[2017-04-07] MEDS ORDERED: Ondansetron 4 MG/2 ML VIAL IVP PRN ×2 (16:02→18:50)
[2017-04-07] MEDS ORDERED: *HR* HYDROmorphone (PF) 1 MG/ML SYRINGE IVP PRN (16:02)
[2017-04-07] MEDS ORDERED: Albuterol 2.5 MG/3 ML NEBULIZER IH PRN (16:02)
--- NOTE | 2017-04-07 16:36 | Anesthesia Evaluation Post Op ---
Date of Encounter: 04/07/17
[2017-04-07] MEDS ORDERED: Ringers Solution, Lactated 1,000 ML ONE (16:45)
[2017-04-07] MEDS ORDERED: Ringers Solution, Lactated 1,000 ML IVC ONE (17:03)
[2017-04-07] MEDS: 0.9 % Sodium Chloride 1,000 ML IVC SCH ×3 (17:54→19:41)
--- NOTE | 2017-04-07 18:17 | Internal Med Progress Note ---
Date of Encounter: 04/07/17 Time of Encounter: 10:00 - Assessment and plan (1) DVT prophylaxis Current Visit: Yes Status: Acute Assessment and plan: EPCD now, resume heparin if there is no surgical bleeding. 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 Continue home medications (4) Cholecystitis, acute Current Visit: Yes Status: Acute Assessment and plan: Had surgery today. Continue nothing by mouth, IV fluid, and IV antibiotics. Closely monitor patient. Patient is at high risk because he has a medical problem need surgical intervention - Time Spent With Patient Greater than 35 minutes - Subjective Interval history: Patient is a 51-year-old male admitted for right upper quadrant abdominal pain. Past medical history is significant for CAD, diabetes Pt was seen and examined. RUQ pain with positive Esquivel's sign, elevated WBC. Consistent with acute cholecystitis. Surgical consult was called. Patient had surgery today. - Constitutional Vitals: Temp Pulse Resp BP Pulse Ox 98.3 F 84 20 114/68 97 04/07/17 17:45 04/07/17 18:05 04/07/17 18:05 04/07/17 18:05 04/07/17 18:05 General appearance: Present: A&O X 3, pleasant, no acute distress - Head Head exam: Present: atraumatic, normocephalic - Eye Eye exam: Present: PERRL, conjuntiva pink, sclera anicteric Pupils: Present: PERRL - Neck Neck exam general surgery: Present: supple, trachea midline. Absent: lymphadenopathy - Respiratory Respiratory exam: Present: CTAB. Absent: accessory muscle use, rales, rhonchi, wheezes - Cardiovascular Cardiovascular exam: Present: RRR, +S1, +S2. Absent: diastolic murmur, gallop, rubs, systolic murmur - GI/Abdominal GI/Abdominal exam: Present: normal bowel sounds, soft, tenderness (on RUQ, Esquivel's positive), no peritoneal signs. Absent: distended - Extremities Exam Extremities exam: Present: warm, radial pulses palpable and symmetrical. Absent : calf tenderness, cyanotic, pedal edema - Neurological Exam Neurological exam: Present: CN II-XII intact, oriented X3, no focal deficits. Absent: pronater drift, facial droop, speech deficit - Skin Skin exam: Present: dry, intact Internal Medicine: Result - Labs CBC & Chem 7: 04/07/17 05:17 04/07/17 05:17 Labs: Short CBC 04/07/17 Range/Units 05:17 WBC 17.5 H D (4.3-11.1) K/mcL Hgb 14.8 D (12.9-16.9) g/dL Hct 42.5 (37.5-50.1) % Plt Count 200 (140-400) K/mcL Neutrophils # 14.8 H (1.6-8.9) K/mcL BMP 04/07/17 05:17 Sodium 130 L Potassium 4.3 Chloride 98 Carbon Dioxide 23 BUN 12 Creatinine 0.77 Glucose 239 H Calcium 8.9 Cardiac Enzymes 04/06/17 Range/Units 18:38 Troponin I 0.00 (0-0.03) ng/mL Liver Function 04/07/17 Range/Units 05:17 Total Bilirubin 1.6 H D (0.2-1.2) mg/dL AST 11 (5-34) Units/L ALT 11 (0-55) Units/L Alkaline Phosphatase 130 H (38-126) Units/L Albumin 2.8 L D (3.5-5.0) g/dL - ABG Interpretation ABG results: PT/INR, D-dimer PT 10.7 Seconds (9.4-12.1) 04/06/17 04:30 - Impressions Impressions Abdomen Ultrasound 04/06/17 20:30 IMPRESSION: 1. Biliary sludge and edematous gallbladder wall thickening without findings of cholelithiasis. Acalculous cholecystitis is not excluded. Consider further evaluation with a nuclear medicine hepatobiliary scan if there are clinical findings of cholecystitis. 2. Mild to moderate hepatic steatosis with possible hepatomegaly. 3. Right renal cyst for which no follow-up is recommended. D/ / Joselo Jennings MD / Joselo Jennings MD Interpreting Provider: Joselo Jennings MD Cholangiogram,Operative 04/07/17 00:00 IMPRESSION: 1. Unremarkable intraoperative cholangiogram. 2. Ribbonlike structure within the right upper quadrant. This likely represents a lap sponge. Clinical correlation is recommended. D/ / 04/07/2017 15:10:01 Tom Ku MD / mili Interpreting Provider: Tom Ku MD Bile Acid Absorption NM 04/07/17 08:00 IMPRESSION: No convincing scintigraphic evidence of acute cholecystitis. D/ / Sean Pandya MD / Sean Pandya MD Interpreting Provider: Sean Pandya MD Consult Discharge Plan - Plan Referrals: Mao Huff MD [Primary Care Provider] -
--- NOTE | 2017-04-07 18:29 | Anesthesia Evaluation Post Op ---
Date of Encounter: 04/07/17 Time of Encounter: 16:11 - Vital Signs Vital Signs: Vital Signs/O2 Sat, Most Current Temp Pulse Resp BP Pulse Ox 98.3 F 87 20 114/68 97 04/07/17 17:45 04/07/17 18:15 04/07/17 18:15 04/07/17 18:05 04/07/17 18:15 - Lungs Lungs: Clear Ascult./Percussion - Airway Airway: Non-obstructed - Cardiovascular Regular Rate - Mental Status Mental Status: Asleep with brisk response to light stimulation - Pain Pain Scale: 2 Pain Scale used: Numeric (1 - 10) - Nausea Vomiting Nausea Vomiting: Not Present - Hydration Hydration: NPO, Has not voided Notes: 04/07/17 18:27 Patient's blood pressure improved after fluid bolus.Also no longer diaphoretic. Only experiencing pain at a level of 2/10. Patient stable and able to go to floor.
[2017-04-07] MEDS ORDERED: *HR* Dextrose 50 % in Water (Syg) 50 ML SYRINGE IVP PRN (18:50)
[2017-04-07] MEDS ORDERED: Naloxone 0.4 MG/ML INJ IVP PRN (18:50)
[2017-04-07] MEDS ORDERED: D5% in Water 1,000 ML IVC PRN (18:50)
[2017-04-07] MEDS ORDERED: *HR* Morphine 2 MG/ML SYRINGE IVP PRN (18:50)
[2017-04-07] MEDS ORDERED: Dextrose Gel 15 GM PO PRN ×2 (18:50)
[2017-04-07] MEDS ORDERED: 0.9 % Sodium Chloride 1,000 ML IVC ONE (19:51)
[2017-04-07] MEDS ORDERED: Insulin LISPRO 300 UNITS/3 ML VIAL SQ SCH (21:00)
[2017-04-08] MEDS ORDERED: Insulin LISPRO 300 UNITS/3 ML VIAL SQ SCH
[2017-04-08] MEDS: Ipratropium/Albuterol Neb 3 ML IH SCH ×7 (00:39→23:00)
[2017-04-08] MEDS: MetroNIDAZOLE 500 MG/100 ML 500 MG/100 ML BAG IVPB SCH ×3 (01:40→17:20)
[2017-04-08 05:16] LABS: Basophils % 0.1 %; Eosinophils % 0.1 %; Hematocrit 37.1 % (37.5-50.1); Immature Granulocytes % 0.7 % (0-4); Lymphocytes # 1.3 K/mcL (0.6-4.6); Lymphocytes % 9.6 %; Mean Corpuscular HGB Conc 33.7 g/dL (31.6-35.5); Mean Corpuscular Volume 86.1 fL (83.0-100.0); Mean Platelet Volume 10.2 fL (9.4-12.4); Monocytes # 0.8 K/mcL (0.0-1.3); Monocytes % 6.1 %; Neutrophils # 11.2 K/mcL (1.6-8.9); Platelet Count 178 K/mcL (140-400); Red Blood Count 4.31 M/mcL (4.19-5.50); Red Cell Distribution Width 12.2 % (11.5-14.5); Segmented Neutrophils % 83.4 %
[2017-04-08 05:20] LABS: Hemoglobin 12.5 g/dL (12.9-16.9)
[2017-04-08 05:31] LABS: BUN/Creatinine Ratio 22 (6-26); Blood Urea Nitrogen 17 mg/dL (8-26); Calcium 8.5 mg/dL (8.6-10.8); Carbon Dioxide 22 mEq/L (19-29); Chloride 100 mEq/L (98-109); Glucose 92 mg/dL (70-99); Osmolality,Calculated 271 (280-300); Potassium 4.3 mEq/L (3.5-4.5); Sodium 130 mEq/L (136-145); eGFR For African Americans > 60 (> 60); eGFR For Non-African Americans > 60 (> 60)
[2017-04-08] MEDS: Famotidine 20 MG/2 ML VIAL IVP SCH ×2 (06:03→18:28)
[2017-04-08] MEDS: 0.9 % Sodium Chloride 1,000 ML IVC SCH (06:03)
--- NOTE | 2017-04-08 08:31 | General Surgery Progress Note ---
Date of Encounter: 04/08/17 Time of Encounter: 13:00 - Assessment and Plan (1) Cholecystitis, acute Current Visit: Yes Status: Acute POD 1 lap cholecystectomy. Noted gallbladder necrosis and subsequent ANASTASIIA placement. -Continue supportive care and discomfort management -States discomfort is controlled on current regimen. -Continue IV abx for another 2-48 hours pending clinical course; then may switch to p.o. -Advance diet as tolerated. Stopped IVF given pt's cardiac history to avoid fluid overload. -Strongly encouraged ambulation and IS -Patient may shower -ANASTASIIA drain education (2) Smoking addiction Current Visit: Yes Status: Acute Smoking cessation is strongly encouraged. Duonebs Q4H IS (3) RUQ abdominal pain Current Visit: Yes Status: Acute See plan above (4) CAD in [place] artery Current Visit: Yes Status: Chronic AMI has been ruled out this admission. He denies symptoms of angina. Subjective Patient reports: feels better, still having pain, pain is less, tolerating liquids well, voiding w/o difficulty, flatus, no bowel movement, afebrile Narrative: Pt sleeping upon entering room. at bedside states he is doing better. Has ambulated, is eating, and denies n/v. Objective Vital Signs - Last 8 Hours Temp Pulse Resp BP Pulse Ox 04/08/17 08:04 16 96 04/08/17 07:14 98.3 F 105 15 125/80 94 04/08/17 04:15 99.0 F 111 20 104/68 94 04/08/17 01:03 100.7 F H 115 20 102/70 91 Intake and Output 04/07/17 04/08/17 04/08/17 23:59 07:59 15:59 Intake Total 300 / 300 Output Total 25 / 365 300 / 300 Balance -25 / -365 0 / 0 Intake: IV Fluids 100 / 100 0.9 % Sodium Chloride 1,000 ML 0 / 0 @ 100 mls/hr IVC .Q10H ANNALISE Rx#: [id number] Flagyl Premix 500 MG/100 ML 500 100 / 100 mg In 100 ml @ 100 mls/hr IVPB Q8HR ANNALISE Rx#:[id number] Oral 200 / 200 Output: Urine 300 / 300 Wound Drainage 25 / 25 Right Chest 25 / Other: # Voids 0 Weight 122.75 kg Blood Glucose* 86 Patient Weight 04/08/17 23:59 Weight 122.75 kg - General physical appearance no distress, moderate pain, other (Sleeping) - Eyes normal ocular movement - ENT atraumatic, normocephalic - Neck Neck exam: trachea midline - Respiratory other (Diminished) - Cardiovascular Cardiovascular exam: Present: tachycardia, distant heart sounds - Abdomen Abdomen: Present: bowel sounds present, soft, tender (Expected post-operative tenderness), wound (RUQ ANASTASIIA with expected SS output) Hernia: none - Incision Incision: Present: clean and dry, intact - Integumentary no rash - Neurologic other (Drowsy) - Musculoskeletal normal gait, normal posture - Psychiatric oriented to time, oriented to person, oriented to place, memory intact - Labs 04/08/17 05:07 04/08/17 05:07 Diabetes panel 04/08/17 Range/Units 05:07 Sodium 130 L (136-145) mEq/L Potassium 4.3 (3.5-4.5) mEq/L Chloride 100 (98-109) mEq/L Carbon Dioxide 22 (19-29) mEq/L BUN 17 (8-26) mg/dL Creatinine 0.79 (0.72-1.25) mg/dL Glucose 92 (70-99) mg/dL Calcium 8.5 L (8.6-10.8) mg/dL Calcium panel 04/08/17 Range/Units 05:07 Calcium 8.5 L (8.6-10.8) mg/dL Pituitary panel 04/08/17 Range/Units 05:07 Sodium 130 L (136-145) mEq/L Potassium 4.3 (3.5-4.5) mEq/L Chloride 100 (98-109) mEq/L Carbon Dioxide 22 (19-29) mEq/L BUN 17 (8-26) mg/dL Creatinine 0.79 (0.72-1.25) mg/dL Glucose 92 (70-99) mg/dL Calcium 8.5 L (8.6-10.8) mg/dL Adrenal panel 04/08/17 Range/Units 05:07 Sodium 130 L (136-145) mEq/L Potassium 4.3 (3.5-4.5) mEq/L Chloride 100 (98-109) mEq/L Carbon Dioxide 22 (19-29) mEq/L BUN 17 (8-26) mg/dL Creatinine 0.79 (0.72-1.25) mg/dL Glucose 92 (70-99) mg/dL Calcium 8.5 L (8.6-10.8) mg/dL - VTE Documentation of Mechanical Device: Intermittent pneumatic compression device Consult Discharge Plan - Plan Instructions: Mick-Medrano Drain Care (DC), Laparoscopic Cholecystectomy (DC) Additional Instructions: -No lifting, pulling, pushing, greater than 15 pounds for 2 weeks. -Okay to climb stairs. -May resume driving when you have been off narcotics for 24 hours and you are safe to react in the car. -You may shower beginning today. Wash the incisions daily with soap and water and pat dry. -No swimming, tub bath, or soaking for 2 weeks. -Record the drainage from your ANASTASIIA drain on the form provided and bring that with you to your follow-up visit. -Suspend the ANASTASIIA drain from a lanyard or a string around your neck when you shower. Do not allow the ANASTASIIA to dangle while in the shower. -Return to the office for follow-up as directed. -Report any increase in discomfort or any new fevers greater than 101.5 degrees and signs of infection such as redness, swelling, or drainage from the incisions. -Take colace while taking narcotics. May hold for loose stool. -Take your antibiotics as directed Referrals: Mao Huff MD [Primary Care Provider] - Fernanda Marks CNP [Advanced Practice Nurse] - 04/16/17 8:00 am
[2017-04-08] MEDS: Insulin LISPRO 300 UNITS/3 ML VIAL SQ SCH ×4 (08:41→20:36)
[2017-04-08] MEDS: Gabapentin 300 MG CAPSULE PO SCH ×2 (09:02→20:28)
[2017-04-08] MEDS: Aspirin Enteric Coated 81 MG Tablet PO SCH (09:02)
[2017-04-08] MEDS: Metoprolol XL (24 HR) Succ 25 MG TAB.ER.24H PO SCH (09:03)
[2017-04-08] MEDS: Insulin DETEMIR 100 UNIT/ML X5UNITS SQ SCH ×2 (09:23→20:35)
[2017-04-08] MEDS: *HR* HYDROcodone/Acet 5/325 mg TABLET PO PRN ×2 (12:19→17:20)
[2017-04-08] MEDS ORDERED: Acetaminophen 325 MG TABLET PO PRN (15:47)
--- NOTE | 2017-04-08 17:27 | Internal Med Progress Note ---
Date of Encounter: 04/08/17 Time of Encounter: 09:00 - Assessment and plan (1) Cholecystitis, acute Current Visit: Yes Status: Acute Assessment and plan: Had surgery POD#1. Continue IV antibiotics. Advance diet per surgery consult. Continue Closely monitor patient. (2) DVT prophylaxis Current Visit: Yes Status: Acute Assessment and plan: EPCD now, resume heparin if there is no surgical bleeding. (3) DM2 (diabetes mellitus, type 2) Current Visit: Yes Status: Acute Assessment and plan: Continue basal and sliding [place] insulin Qualifiers: Diabetes mellitus complication status: without complication Diabetes mellitus manager long term care insulin use: with penitentiary use Qualified Code(s): E11.9 - Type 2 diabetes mellitus without complications; Z79.4 - intermission coordinator (current) use of insulin (4) CAD in [place] artery Current Visit: Yes Status: Chronic Assessment and plan: Patient denies chest pain. Continue home medications - Subjective Interval history: Patient is a 51-year-old male admitted for right upper quadrant abdominal pain. Past medical history is significant for CAD, diabetes Pt was seen and examined. POD#1. Complaint pain on incision. Not passing gas yet. Vitals are stable. No fever in early a.m.. Continue antibiotic, follow further recommendation from surgical team. - Constitutional Vitals: Temp Pulse Resp BP Pulse Ox 97.7 F 90 22 115/75 95 04/08/17 15:48 04/08/17 15:48 04/08/17 16:14 04/08/17 15:48 04/08/17 16:14 General appearance: Present: A&O X 3, pleasant, no acute distress - Head Head exam: Present: atraumatic, normocephalic - Eye Eye exam: Present: PERRL, conjuntiva pink, sclera anicteric Pupils: Present: PERRL - Neck Neck exam general surgery: Present: supple, trachea midline. Absent: lymphadenopathy - Respiratory Respiratory exam: Present: CTAB. Absent: accessory muscle use, rales, rhonchi, wheezes - Cardiovascular Cardiovascular exam: Present: RRR, +S1, +S2. Absent: diastolic murmur, gallop, rubs, systolic murmur - GI/Abdominal GI/Abdominal exam: Present: normal bowel sounds, soft, tenderness (Mild to tenderness without rebound or guarding), no peritoneal signs. Absent: distended - Extremities Exam Extremities exam: Present: warm, radial pulses palpable and symmetrical. Absent : calf tenderness, cyanotic, pedal edema - Neurological Exam Neurological exam: Present: CN II-XII intact, oriented X3, no focal deficits. Absent: pronater drift, facial droop, speech deficit - Skin Skin exam: Present: dry, intact Internal Medicine: Result - Labs CBC & Chem 7: 04/08/17 05:07 04/08/17 05:07 Labs: Short CBC 04/08/17 Range/Units 05:07 WBC 13.4 H (4.3-11.1) K/mcL Hgb 12.5 L D (12.9-16.9) g/dL Hct 37.1 L (37.5-50.1) % Plt Count 178 (140-400) K/mcL Neutrophils # 11.2 H (1.6-8.9) K/mcL BMP 04/08/17 05:07 Sodium 130 L Potassium 4.3 Chloride 100 Carbon Dioxide 22 BUN 17 Creatinine 0.79 Glucose 92 Calcium 8.5 L - ABG Interpretation ABG results: PT/INR, D-dimer PT 10.7 Seconds (9.4-12.1) 04/06/17 04:30 - VTE Documentation of Mechanical Device: Intermittent pneumatic compression device Consult Discharge Plan - Plan Instructions: Mick-Medrano Drain Care (DC), Laparoscopic Cholecystectomy (DC) Additional Instructions: -No lifting, pulling, pushing, greater than 15 pounds for 2 weeks. -Okay to climb stairs. -May resume driving when you have been off narcotics for 24 hours and you are safe to react in the car. -You may shower beginning today. Wash the incisions daily with soap and water and pat dry. -No swimming, tub bath, or soaking for 2 weeks. -Record the drainage from your ANASTASIIA drain on the form provided and bring that with you to your follow-up visit. -Suspend the ANASTASIIA drain from a lanyard or a string around your neck when you shower. Do not allow the ANASTASIIA to dangle while in the shower. -Return to the office for follow-up as directed. -Report any increase in discomfort or any new fevers greater than 101.5 degrees and signs of infection such as redness, swelling, or drainage from the incisions. -Take colace while taking narcotics. May hold for loose stool. -Take your antibiotics as directed Referrals: Mao Huff MD [Primary Care Provider] - Fernanda Marks CNP [Advanced Practice Nurse] - 04/16/17 8:00 am
[2017-04-09] MEDS: MetroNIDAZOLE 500 MG/100 ML 500 MG/100 ML BAG IVPB SCH ×3 (00:41→16:00)
[2017-04-09] MEDS: Ipratropium/Albuterol Neb 3 ML IH SCH ×6 (04:34→23:03)
[2017-04-09 05:22] LABS: Basophils % 0.2 %; Eosinophils # 0.2 K/mcL (0.0-0.6); Eosinophils % 1.7 %; Hemoglobin 12.2 g/dL (12.9-16.9); Immature Granulocytes % 0.8 % (0-4); Lymphocytes # 1.1 K/mcL (0.6-4.6); Lymphocytes % 8.4 %; Mean Corpuscular HGB Conc 33.9 g/dL (31.6-35.5); Mean Corpuscular Hemoglobin 29.5 pg (28.0-33.3); Mean Platelet Volume 10.9 fL (9.4-12.4); Monocytes # 0.8 K/mcL (0.0-1.3); Monocytes % 6.3 %; Neutrophils # 10.7 K/mcL (1.6-8.9); Platelet Count 177 K/mcL (140-400); Red Blood Count 4.14 M/mcL (4.19-5.50); Red Cell Distribution Width 12.3 % (11.5-14.5); Segmented Neutrophils % 82.6 %
[2017-04-09] MEDS: Famotidine 20 MG/2 ML VIAL IVP SCH (05:39)
[2017-04-09 05:46] LABS: BUN/Creatinine Ratio 15 (6-26); Blood Urea Nitrogen 10 mg/dL (8-26); Calcium 8.7 mg/dL (8.6-10.8); Carbon Dioxide 25 mEq/L (19-29); Chloride 97 mEq/L (98-109); Glucose 188 mg/dL (70-99); Osmolality,Calculated 272 (280-300); Sodium 129 mEq/L (136-145); eGFR For African Americans > 60 (> 60); eGFR For Non-African Americans > 60 (> 60)
[2017-04-09] MEDS: Insulin LISPRO 300 UNITS/3 ML VIAL SQ SCH ×4 (07:54→22:00)
[2017-04-09] MEDS: Metoprolol XL (24 HR) Succ 25 MG TAB.ER.24H PO SCH (07:55)
[2017-04-09] MEDS: *HR* HYDROcodone/Acet 5/325 mg TABLET PO PRN ×2 (07:55→18:53)
[2017-04-09] MEDS: Aspirin Enteric Coated 81 MG Tablet PO SCH (07:55)
[2017-04-09] MEDS: Gabapentin 300 MG CAPSULE PO SCH ×2 (07:55→20:18)
--- NOTE | 2017-04-09 08:16 | General Surgery Progress Note ---
Date of Encounter: 04/09/17 Time of Encounter: 08:09 - Assessment and Plan (1) Cholecystitis, acute Current Visit: Yes Status: Acute POD 2 lap cholecystectomy. Noted gallbladder necrosis and subsequent ANASTASIIA placement. -Continue supportive care and discomfort management -States discomfort is controlled on current regimen. -Switch to PO Cipro and falgyl for 7 days at d/c -Advance diet as tolerated. -Strongly encouraged ambulation and IS -Patient may shower -ANASTASIIA drain education -Ok to d/c from a surgical perspective. Follow-up in office as directed. (2) Smoking addiction Current Visit: Yes Status: Chronic Smoking cessation is strongly encouraged. Duonebs Q4H IS (3) RUQ abdominal pain Current Visit: Yes Status: Resolved See plan above (4) CAD in [place] artery Current Visit: Yes Status: Chronic AMI has been ruled out this admission. He denies symptoms of angina. Subjective Patient reports: no new complaints, feels better, still having pain, pain is less, tolerating a regular diet, voiding w/o difficulty, flatus, no bowel movement, afebrile Objective Vital Signs - Last 8 Hours Temp Pulse Resp BP Pulse Ox 04/09/17 07:50 18 98 04/09/17 06:54 97.9 F 102 16 104/65 98 04/09/17 04:36 98.0 F 89 18 108/65 95 Intake and Output 04/08/17 04/09/17 04/09/17 23:59 07:59 15:59 Intake Total 300 / 300 460 / 460 Output Total Balance 270 / 270 435 / 435 Intake: IV Fluids 300 / 300 100 / 100 Cipro Premix 400 MG/200 ML 400 200 / 200 mg In 200 ml @ 200 mls/hr IVPB Q12HR ANNALISE Rx#:[id number] Flagyl Premix 500 MG/100 ML 500 100 / 100 100 / 100 mg In 100 ml @ 100 mls/hr IVPB Q8HR ANNALISE Rx#:[id number] Oral 360 / 360 Output: Wound Drainage Right Abdomen Other: # Voids 1 Blood Glucose* 205 181 - General physical appearance well developed, well nourished, no distress, other (Sitting at EOB. States he wants to go home.) - Eyes normal ocular movement - ENT atraumatic, normocephalic - Neck Neck exam: no masses, trachea midline - Respiratory normal expansion, normal respiratory effort, other (Exp Wheezing) - Cardiovascular Cardiovascular exam: Present: RRR - Abdomen Abdomen: Present: bowel sounds present, soft, tender (Expected postoperative tenderness), wound (RUQ ANASTASIIA with expected SS drainage present. Small amount of particulate. No s/s of infection) - Incision Incision: Present: clean and dry, intact - Integumentary no rash - Neurologic CN 2-12 grossly intact - Musculoskeletal normal gait, normal posture - Psychiatric oriented to time, oriented to person, oriented to place, speech is normal, memory intact - Labs 04/09/17 04:51 04/09/17 04:51 Diabetes panel 04/09/17 Range/Units 04:51 Sodium 129 L (136-145) mEq/L Potassium 4.0 (3.5-4.5) mEq/L Chloride 97 L (98-109) mEq/L Carbon Dioxide 25 (19-29) mEq/L BUN 10 (8-26) mg/dL Creatinine 0.68 L (0.72-1.25) mg/dL Glucose 188 H (70-99) mg/dL Calcium 8.7 (8.6-10.8) mg/dL Calcium panel 04/09/17 Range/Units 04:51 Calcium 8.7 (8.6-10.8) mg/dL Pituitary panel 04/09/17 Range/Units 04:51 Sodium 129 L (136-145) mEq/L Potassium 4.0 (3.5-4.5) mEq/L Chloride 97 L (98-109) mEq/L Carbon Dioxide 25 (19-29) mEq/L BUN 10 (8-26) mg/dL Creatinine 0.68 L (0.72-1.25) mg/dL Glucose 188 H (70-99) mg/dL Calcium 8.7 (8.6-10.8) mg/dL Adrenal panel 04/09/17 Range/Units 04:51 Sodium 129 L (136-145) mEq/L Potassium 4.0 (3.5-4.5) mEq/L Chloride 97 L (98-109) mEq/L Carbon Dioxide 25 (19-29) mEq/L BUN 10 (8-26) mg/dL Creatinine 0.68 L (0.72-1.25) mg/dL Glucose 188 H (70-99) mg/dL Calcium 8.7 (8.6-10.8) mg/dL - VTE Documentation of Mechanical Device: Intermittent pneumatic compression device Consult Discharge Plan - Plan Instructions: Mick-Medrano Drain Care (DC), Laparoscopic Cholecystectomy (DC) Additional Instructions: -No lifting, pulling, pushing, greater than 15 pounds for 2 weeks. -Okay to climb stairs. -May resume driving when you have been off narcotics for 24 hours and you are safe to react in the car. -You may shower beginning today. Wash the incisions daily with soap and water and pat dry. -No swimming, tub bath, or soaking for 2 weeks. -Record the drainage from your ANASTASIIA drain on the form provided and bring that with you to your follow-up visit. -Suspend the ANASTASIIA drain from a lanyard or a string around your neck when you shower. Do not allow the ANASTASIIA to dangle while in the shower. -Return to the office for follow-up as directed. -Report any increase in discomfort or any new fevers greater than 101.5 degrees and signs of infection such as redness, swelling, or drainage from the incisions. -Take colace while taking narcotics. May hold for loose stool. -Take your antibiotics as directed -Do not drink alcohol while taking Flagyl and refrain from drinking alcohol at least 48 hours after your last dose of Flagyl. Referrals: Mao Huff MD [Primary Care Provider] - 04/14/17 10:30 am Fernanda Marks CNP [Advanced Practice Nurse] - 04/16/17 8:00 am Prescriptions: HYDROcodone/Acet 10/325 mg [[place] 10-325 mg] 1 tab PO Q4HR PRN #42 tab PRN Reason: Pain Ciprofloxacin HCl [Cipro] 500 mg PO BID #14 tablet Docusate [Colace] 100 mg PO BID #60 capsule metroNIDAZOLE [Flagyl] 500 mg PO TID #21 tablet
[2017-04-09] MEDS: Insulin DETEMIR 100 UNIT/ML X5UNITS SQ SCH ×2 (08:29→22:00)
--- NOTE | 2017-04-09 17:05 | Internal Med Progress Note ---
Date of Encounter: 04/09/17 Time of Encounter: 11:00 - Assessment and plan (1) Cholecystitis, acute Current Visit: Yes Status: Acute Assessment and plan: Had surgery POD#2. Continue IV antibiotics. Advance diet per surgery consult. Continue Closely monitor patient. (2) DVT prophylaxis Current Visit: Yes Status: Acute Assessment and plan: EPCD, resume heparin. (3) DM2 (diabetes mellitus, type 2) Current Visit: Yes Status: Acute Assessment and plan: Continue basal and sliding [place] insulin Qualifiers: Diabetes mellitus complication status: without complication Diabetes mellitus halfway insulin use: with halfway use Qualified Code(s): E11.9 - Type 2 diabetes mellitus without complications; Z79.4 - termination clerk (current) use of insulin (4) CAD in [place] artery Current Visit: Yes Status: Chronic Assessment and plan: Patient denies chest pain. Continue home medications - Time Spent With Patient 25 - 35 minutes - Subjective Interval history: Patient is a 51-year-old male admitted for right upper quadrant abdominal pain. Past medical history is significant for CAD, diabetes Pt was seen and examined. POD#2. Complaint pain on incision. Passed gas, no BM yet. Vitals are stable. No fever in early a.m.. Continue antibiotic. - Constitutional Vitals: Temp Pulse Resp BP Pulse Ox 98.2 F 102 18 109/71 97 04/09/17 16:36 04/09/17 16:36 04/09/17 16:36 04/09/17 16:36 04/09/17 16:36 General appearance: Present: A&O X 3, pleasant, no acute distress - Head Head exam: Present: atraumatic, normocephalic - Eye Eye exam: Present: PERRL, conjuntiva pink, sclera anicteric Pupils: Present: PERRL - Neck Neck exam general surgery: Present: supple, trachea midline. Absent: lymphadenopathy - Respiratory Respiratory exam: Present: CTAB. Absent: accessory muscle use, rales, rhonchi, wheezes - Cardiovascular Cardiovascular exam: Present: RRR, +S1, +S2. Absent: diastolic murmur, gallop, rubs, systolic murmur - GI/Abdominal GI/Abdominal exam: Present: normal bowel sounds, soft, no peritoneal signs. Absent: distended, tenderness - Extremities Exam Extremities exam: Present: warm, radial pulses palpable and symmetrical. Absent : calf tenderness, cyanotic, pedal edema - Neurological Exam Neurological exam: Present: CN II-XII intact, oriented X3, no focal deficits. Absent: pronater drift, facial droop, speech deficit - Skin Skin exam: Present: dry, intact Internal Medicine: Result - Labs CBC & Chem 7: 04/09/17 04:51 04/09/17 04:51 Labs: Short CBC 04/09/17 Range/Units 04:51 WBC 13.0 H (4.3-11.1) K/mcL Hgb 12.2 L (12.9-16.9) g/dL Hct 36.0 L (37.5-50.1) % Plt Count 177 (140-400) K/mcL Neutrophils # 10.7 H (1.6-8.9) K/mcL BMP 04/09/17 04:51 Sodium 129 L Potassium 4.0 Chloride 97 L Carbon Dioxide 25 BUN 10 Creatinine 0.68 L Glucose 188 H Calcium 8.7 - ABG Interpretation ABG results: PT/INR, D-dimer PT 10.7 Seconds (9.4-12.1) 04/06/17 04:30 - VTE Documentation of Mechanical Device: Intermittent pneumatic compression device Consult Discharge Plan - Plan Instructions: Mick-Medrano Drain Care (DC), Laparoscopic Cholecystectomy (DC) Additional Instructions: -No lifting, pulling, pushing, greater than 15 pounds for 2 weeks. -Okay to climb stairs. -May resume driving when you have been off narcotics for 24 hours and you are safe to react in the car. -You may shower beginning today. Wash the incisions daily with soap and water and pat dry. -No swimming, tub bath, or soaking for 2 weeks. -Record the drainage from your ANASTASIIA drain on the form provided and bring that with you to your follow-up visit. -Suspend the ANASTASIIA drain from a lanyard or a string around your neck when you shower. Do not allow the ANASTASIIA to dangle while in the shower. -Return to the office for follow-up as directed. -Report any increase in discomfort or any new fevers greater than 101.5 degrees and signs of infection such as redness, swelling, or drainage from the incisions. -Take colace while taking narcotics. May hold for loose stool. -Take your antibiotics as directed -Do not drink alcohol while taking Flagyl and refrain from drinking alcohol at least 48 hours after your last dose of Flagyl. Referrals: Mao Huff MD [Primary Care Provider] - 04/14/17 10:30 am Fernanda Marks CNP [Advanced Practice Nurse] - 04/16/17 8:00 am Prescriptions: HYDROcodone/Acet 10/325 mg [[place] 10-325 mg] 1 tab PO Q4HR PRN #42 tab PRN Reason: Pain Ciprofloxacin HCl [Cipro] 500 mg PO BID #14 tablet Docusate [Colace] 100 mg PO BID #60 capsule metroNIDAZOLE [Flagyl] 500 mg PO TID #21 tablet
[2017-04-09] MEDS: *HR* Heparin 5,000 UNIT/ML VIAL SQ SCH (18:53)
[2017-04-10] MEDS: Ipratropium/Albuterol Neb 3 ML IH SCH ×3 (03:39→11:18)
[2017-04-10] MEDS: *HR* HYDROcodone/Acet 5/325 mg TABLET PO PRN (04:19)
[2017-04-10] MEDS: *HR* Heparin 5,000 UNIT/ML VIAL SQ SCH (05:54)
[2017-04-10 06:33] LABS: Basophils % 0.1 %; Eosinophils # 0.3 K/mcL (0.0-0.6); Eosinophils % 3.7 %; Hematocrit 37.9 % (37.5-50.1); Hemoglobin 12.7 g/dL (12.9-16.9); Immature Granulocytes % 0.5 % (0-4); Lymphocytes % 11.7 %; Mean Corpuscular HGB Conc 33.5 g/dL (31.6-35.5); Mean Corpuscular Hemoglobin 29.4 pg (28.0-33.3); Mean Corpuscular Volume 87.7 fL (83.0-100.0); Mean Platelet Volume 10.4 fL (9.4-12.4); Monocytes # 0.7 K/mcL (0.0-1.3); Neutrophils # 6.1 K/mcL (1.6-8.9); Platelet Count 240 K/mcL (140-400); Red Blood Count 4.32 M/mcL (4.19-5.50); Red Cell Distribution Width 12.2 % (11.5-14.5)
[2017-04-10 06:51] LABS: BUN/Creatinine Ratio 16 (6-26); Blood Urea Nitrogen 12 mg/dL (8-26); Calcium 8.9 mg/dL (8.6-10.8); Carbon Dioxide 26 mEq/L (19-29); Chloride 96 mEq/L (98-109); Glucose 209 mg/dL (70-99); Osmolality,Calculated 280 (280-300); Potassium 4.1 mEq/L (3.5-4.5); Sodium 132 mEq/L (136-145); eGFR For African Americans > 60 (> 60); eGFR For Non-African Americans > 60 (> 60)
[2017-04-10 07:42] VITALS: BP 106/74
[2017-04-10] MEDS: Gabapentin 300 MG CAPSULE PO SCH (08:16)
[2017-04-10] MEDS: Insulin DETEMIR 100 UNIT/ML X5UNITS SQ SCH (08:17)
[2017-04-10] MEDS: Aspirin Enteric Coated 81 MG Tablet PO SCH (08:17)
[2017-04-10] MEDS: Metoprolol XL (24 HR) Succ 25 MG TAB.ER.24H PO SCH (08:17)
[2017-04-10] MEDS: Insulin LISPRO 300 UNITS/3 ML VIAL SQ SCH (08:18)
--- NOTE | 2017-04-10 08:32 | Discharge Summary ---
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 Qualified Code(s): E11.9 - Type 2 diabetes mellitus without complications; Z79.4 - [facility] (current) use of insulin (4) CAD in [place] artery Priority: Secondary Status: Chronic - Discharge Medications Prescriptions: HYDROcodone/Acet 10/325 mg [[place] 10-325 mg] 1 tab PO Q4HR PRN #42 tab PRN Reason: Pain Ciprofloxacin HCl [Cipro] 500 mg PO BID #14 tablet Docusate [Colace] 100 mg PO BID #60 capsule metroNIDAZOLE [Flagyl] 500 mg PO TID #21 tablet Home Medications: Amitriptyline [Elavil] 100 mg PO HS 04/06/17 [History] Aspirin [Lo-Dose Aspirin EC] 81 mg PO DAILY 04/06/17 [History] Atorvastatin Calcium [Lipitor] 80 mg PO HS 04/06/17 [History] Citalopram [CeleXA] 20 mg PO DAILY 04/06/17 [History] Clopidogrel [Plavix] 75 mg PO DAILY 04/06/17 [History] Cyclobenzaprine HCl 5 mg PO TID PRN 04/06/17 [History] Exenatide Microspheres [Bydureon Pen] 2 mg SQ MAST 04/06/17 [History] Gabapentin [Neurontin] 600 mg PO BID 04/06/17 [History] Insulin Glargine [Lantus] 50 unit SQ BID PRN 04/06/17 [History] Lisinopril [Zestril] 10 mg PO DAILY 04/06/17 [History] Metoprolol XL (24 HR) Succ [Toprol Xl] 25 mg PO DAILY 04/06/17 [History] hydrOXYzine HCl [Hydroxyzine HCl] 25 mg PO DAILY 04/06/17 [History] Ciprofloxacin HCl [Cipro] 500 mg PO BID #14 tablet 04/09/17 [Rx] Docusate [Colace] 100 mg PO BID #60 capsule 04/09/17 [Rx] HYDROcodone/Acet 10/325 mg [[place] 10-325 mg] 1 tab PO Q4HR PRN #42 tab 04/09/17 [Rx] metroNIDAZOLE [Flagyl] 500 mg PO TID #21 tablet 04/09/17 [Rx] Allergies/Adverse Reactions: 3 Allergy/AdvReac Type Severity Reaction Status Date / Time No Known Allergies Allergy Verified 04/02/17 22:53 Date of admission: 04/07/17 21:25 Primary care physician: Mao Huff MD Discharging clinician: Mitzi Redmond Anticipated date of discharge: 04/10/17 - Patient Status Disposition: Home, Self-Care Condition: Good Functional capacity at discharge: independent ambulation Overall status at discharge: patient is back to baseline - Discharge Instructions Instructions: [place] Drain Care (DC), Laparoscopic Cholecystectomy (DC) Follow Up With: Mao Huff MD [Primary Care Provider] - 04/14/17 10:30 am Fernanda Marks CNP [Advanced Practice Nurse] - 04/16/17 8:00 am Additional Instructions: -No lifting, pulling, pushing, greater than 15 pounds for 2 weeks. -Okay to climb stairs. -May resume driving when you have been off narcotics for 24 hours and you are safe to react in the car. -You may shower beginning today. Wash the incisions daily with soap and water and pat dry. -No swimming, tub bath, or soaking for 2 weeks. -Record the drainage from your ANASTASIIA drain on the form provided and bring that with you to your follow-up visit. -Suspend the ANASTASIIA drain from a lanyard or a string around your neck when you shower. Do not allow the ANASTASIIA to dangle while in the shower. -Return to the office for follow-up as directed. -Report any increase in discomfort or any new fevers greater than 101.5 degrees and signs of infection such as redness, swelling, or drainage from the incisions. -Take colace while taking narcotics. May hold for loose stool. -Take your antibiotics as directed -Do not drink alcohol while taking Flagyl and refrain from drinking alcohol at least 48 hours after your last dose of Flagyl. - Diet and Activity Activity: increase activity as tolerated Diet: diabetic diet Interval History: HPI on Adm: Mr. Green is a 51 year old male with known PMH of HTN, HLD, Morbid obesity, CAD s/p cardiac stents was presentd to our ER c/o sudden onset Left chest wall and RUQ abd pain, radiating to his Rt side of neck and upper back. He also had nasuea and a couple of vomitings. Now he is resting comfortably in the bed. He denied any more CP / SOB / Abd pain. Last night when he had CP , it was 10/10 in severity, sharp type pain. Hospital course: Mr. Green is a 51 year old male admitted as right upper quadrant PAIN and some left chest wall pain. He was placed on cardiac monitoring and track the 3 sets of troponin, which was negative. His pain laterly mainly on the right upper quadrant, US abd suspect cholecystitis, NM biliary scan has been done, confirmed cholecystitis. Patient was placed on nothing by mouth, IV fluid, and antibiotics. Surgical consult was called, patient had cholecystectomy. After surgery, patient recovered well, tolerated regular diet. No further fever, no further chest pain or shortness of breath, WBC Count is normal. Patient was discharged home with by mouth antibiotic and follow-up with surgery as outpatient as scheduled. I saw and examined the patient today. He feels fine, minimal incision pain. Pt passing gas and tolerate diet well. ANASTASIIA drain in place, no signs of infection. Vitals are stable. Patient will discharge home and follow-up as outpatient. - Time Spent with Patient Total time spent providing and/or coordinating discharge services: 25 minutes Less than 30 minutes - Constitutional Vitals: Temp Pulse Resp BP Pulse Ox 98.2 F 93 18 106/74 97 04/10/17 07:37 04/10/17 07:37 04/10/17 07:51 04/10/17 07:37 04/10/17 07:51 General appearance: Present: A&O X 3, pleasant, no acute distress - Head Head exam: Present: atraumatic, normocephalic - Eye Eye exam: Present: PERRL, conjuntiva pink, sclera anicteric Pupils: Present: PERRL - Neck Neck exam general surgery: Present: supple, trachea midline. Absent: lymphadenopathy - Respiratory Respiratory exam: Present: CTAB. Absent: accessory muscle use, rales, rhonchi, wheezes - Cardiovascular Cardiovascular exam: Present: RRR, +S1, +S2. Absent: diastolic murmur, gallop, rubs, systolic murmur - GI/Abdominal GI/Abdominal exam: Present: normal bowel sounds, soft, no peritoneal signs. Absent: distended, tenderness Additional comments: ANASTASIIA drain in place - Extremities Exam Extremities exam: Present: warm, radial pulses palpable and symmetrical. Absent : calf tenderness, cyanotic, pedal edema - Neurological Exam Neurological exam: Present: CN II-XII intact, oriented X3, no focal deficits. Absent: pronater drift, facial droop, speech deficit - Skin Skin exam: Present: dry, intact - VTE Documentation of Mechanical Device: Venous foot pump, device
[2017-04-10] MEDS ORDERED: metroNIDAZOLE 500 MG TABLET PO SCH (09:00)
== END 2017-04-10 10:30 | disposition home or self-care (01) | DRG 419 ==
LOC: 2NENU 03:49 → EMEROO 03:49 → 2NENU 10:42
PROVIDERS: ADMIT Family Medicine; ATTEND Internal Medicine

== ENCOUNTER 2017-07-19 19:10 | Observation (INO) ==
--- NOTE | 2017-07-19 20:33 | Emergency Department Note ---
Disposition Clinical Impression: Diabetic foot infection Disposition: Admitted As Inpatient Condition: Fair Referrals: Mao Huff MD [Primary Care Provider] - Forms: ED Satisfaction Letter Time of Disposition: 21:43 Extremity Problem HPI - General Chief complaint: ED Wound/Laceration Stated complaint: Sore on L Foot (Diabetic) Time Seen by Provider: 07/19/17 20:19 Source: patient, family Limitations: no limitations Nursing Notes Reviewed: Yes Vital Signs Reviewed: Yes - History of Present Illness Pt Subjective Complaint: extremity swelling Onset (ago): day(s) Consistency: constant Injury Location: lower extremity Pain Scale: 10 Quality: aching Radiation: none Improves with: nothing Worsens with: weight bearing Associated symptoms: Reports: denies other symptoms Context: other (History of poorly controlled diabetes) - Related Data Home Medications Medication Instructions Recorded Confirmed Amitriptyline [Elavil] 100 mg PO HS 04/06/17 04/06/17 Aspirin [Lo-Dose Aspirin EC] 81 mg PO DAILY 04/06/17 04/06/17 Atorvastatin Calcium [Lipitor] 80 mg PO HS 04/06/17 04/06/17 Citalopram [CeleXA] 20 mg PO DAILY 04/06/17 04/06/17 Clopidogrel [Plavix] 75 mg PO DAILY 04/06/17 04/06/17 Cyclobenzaprine HCl 5 mg PO TID PRN 04/06/17 04/06/17 Exenatide Microspheres [Bydureon 2 mg SQ MAST 04/06/17 04/06/17 Pen] Gabapentin [Neurontin] 600 mg PO BID 04/06/17 04/06/17 Insulin Glargine [Lantus] 50 unit SQ BID PRN 04/06/17 04/06/17 Lisinopril [Zestril] 10 mg PO DAILY 04/06/17 04/06/17 Metoprolol XL (24 HR) Succ [Toprol 25 mg PO DAILY 04/06/17 04/06/17 Xl] hydrOXYzine HCl [Hydroxyzine HCl] 25 mg PO DAILY 04/06/17 04/06/17 Previous Rx's Medication Instructions Recorded Ciprofloxacin HCl [Cipro] 500 mg PO BID #14 tablet 04/09/17 Docusate [Colace] 100 mg PO BID #60 capsule 04/09/17 HYDROcodone/Acet 10/325 mg [[place] 1 tab PO Q4HR PRN #42 tab 04/09/17 10-325 mg] metroNIDAZOLE [Flagyl] 500 mg PO TID #21 tablet 04/09/17 Tramadol HCl [Ultram] 50 mg PO TID PRN #9 tab 06/21/17 Allergies Allergy/AdvReac Type Severity Reaction Status Date / Time No Known Allergies Allergy Verified 07/19/17 19:23 All systems ED: reviewed and negative except as stated. Constitutional: Reports: as per HPI Eyes: Reports: as per HPI ENT ED: Reports: as per HPI Cardiovascular: Reports: as per HPI Respiratory: Reports: as per HPI Gastrointestinal: Reports: as per HPI Genitourinary: Reports: as per HPI Musculoskeletal: Reports: other (Left foot pain and swelling) Integumentary: Reports: lesions (Lesion to the plantar surface of the left foot) , other Neurological: Reports: other (Bilateral decreased sensation to the feet due to diabetic peripheral neuropathy) Psychiatric: Reports: as per HPI Endocrine: Reports: other (Blood sugars ranging from the 200s to 400s routinely) Hematological/Lymphatic: Reports: as per HPI Allergic/Immunologic: Reports: as per HPI Past Medical History - Past Medical History Source: patient Medical history: Reports: coronary artery disease, diabetes, myocardial infarction Surgical history: Reports: angioplasty/stent (2014 ([facility]) and prior to that was in [place]), herniorrhaphy, orthopedic, other Psychiatric history: Reports: anxiety, depression - Social History Smoking Status: Current every day smoker Smokeless Tobacco Status: No Alcohol use: Reports: none Drug use: Reports: none Physical Exam - General Limitations: no limitations General appearance: alert, in no apparent distress - Head Head exam: atraumatic - Eye Eye exam: Present: normal appearance - ENT ENT exam: normal exam - Neck Neck exam: Present: normal inspection, full ROM - Chest Chest inspection: Present: normal inspection, symmetric chest wall rise - Respiratory Respiratory exam: Present: normal lung sounds bilaterally - Cardiovascular Cardiovascular exam: Present: tachycardia, normal heart sounds - Rectal Exam Rectal exam: Present: deferred - Expanded Lower Extremity Exam Lower leg exam: Present: normal inspection Foot/toe exam: Present: swelling (Erythema and diffuse swelling to the left foot. Dry, non-ulcerative lesion to the plantar surface of the left foot at the base of the fourth metatarsal area and no active drainage noted no visualized foreign body) - Neurological Exam Neurological exam: Present: alert, oriented X3, CN II-XII intact - Psychiatric Psychiatric exam: Present: normal affect, normal mood - Skin Skin exam: Present: warm, dry Course Course Narrative: Patient presents with a lesion to the plantar surface of his left foot. He has poorly controlled diabetes with evidence of cellulitis. I will check an x-ray, basic labs. He will likely require parenteral antibiotics and podiatry consultation. Patient to be admitted to the medicine service - Consultations Consultation #1: Call placed to podiatry on-call. Case d/w Dr. Hanna at 20:39 Vital Signs Temperature 98.0 F 07/19/17 19:23 Pulse Rate 114 07/19/17 19:23 Respiratory Rate 16 07/19/17 19:23 Blood Pressure 151/91 07/19/17 19:23 O2 Sat by Pulse Oximetry 99 07/19/17 19:23 Temperature 98.0 F 07/19/17 19:23 Pulse Rate 98 07/19/17 21:08 Respiratory Rate 18 07/19/17 21:08 Blood Pressure 133/89 07/19/17 21:08 O2 Sat by Pulse Oximetry 98 07/19/17 21:08 Oxygen Delivery Oxygen Delivery Room Air Extremity Problem, Nontraumati - Lab Data Lab results reviewed: Yes I reviewed the patient's lab results. Result diagrams: 07/19/17 21:06 Lab Results 07/19/17 07/19/17 07/19/17 Range/Units 21:06 21:06 21:06 WBC 10.4 (4.3-11.1) K/mcL RBC 5.14 (4.19-5.50) M/mcL Hgb 15.2 (12.9-16.9) g/dL Hct 43.5 (37.5-50.1) % MCV 84.6 (83.0-100.0) fL MCH 29.6 (28.0-33.3) pg MCHC 34.9 (31.6-35.5) g/dL RDW 12.4 (11.5-14.5) % Plt Count 199 (140-400) K/mcL MPV 11.0 (9.4-12.4) fL Immature Gran % 0.4 (0-4) % Seg Neutrophils % 59.1 % Lymphocytes % 29.6 % Monocytes % 6.9 % Eosinophils % 3.5 % Basophils % 0.5 % Neutrophils # 6.1 (1.6-8.9) K/mcL Lymphocytes # 3.1 (0.6-4.6) K/mcL Monocytes # 0.7 (0.0-1.3) K/mcL Eosinophils # 0.4 (0.0-0.6) K/mcL Basophils # 0.1 (0.0-0.2) K/mcL PT 10.3 (9.4-12.1) Seconds INR 1.0 Est Mean Plasma Glucose 226 mg/dl Hemoglobin A1c 9.5 H ( - 5.6) % - Radiology Data Radiology results reviewed: Yes I reviewed the patient's radiology results.
[2017-07-19] MEDS ORDERED: Piperacillin/Tazobactam 3.375 GM in Water for inj. (sterile) 20 ML 20 ML IVP ONE (21:00)
[2017-07-19 21:28] LABS: Basophils # 0.1 K/mcL (0.0-0.2); Basophils % 0.5 %; Eosinophils # 0.4 K/mcL (0.0-0.6); Eosinophils % 3.5 %; Hematocrit 43.5 % (37.5-50.1); Hemoglobin 15.2 g/dL (12.9-16.9); Immature Granulocytes % 0.4 % (0-4); Lymphocytes # 3.1 K/mcL (0.6-4.6); Lymphocytes % 29.6 %; Mean Corpuscular HGB Conc 34.9 g/dL (31.6-35.5); Mean Corpuscular Hemoglobin 29.6 pg (28.0-33.3); Mean Corpuscular Volume 84.6 fL (83.0-100.0); Monocytes # 0.7 K/mcL (0.0-1.3); Monocytes % 6.9 %; Neutrophils # 6.1 K/mcL (1.6-8.9); Platelet Count 199 K/mcL (140-400); Red Blood Count 5.14 M/mcL (4.19-5.50); Red Cell Distribution Width 12.4 % (11.5-14.5); Segmented Neutrophils % 59.1 %
[2017-07-19 21:33] LABS: Prothrombin Time 10.3 Seconds (9.4-12.1)
[2017-07-19 21:35] LABS: Hemoglobin A1C 9.5 %
[2017-07-19 21:45] LABS: Alanine Aminotransferase 12 Units/L (7-52); Albumin 3.8 g/dL (3.5-5.7); Albumin/Globulin Ratio 1.5 (1.1-2.2); Alkaline Phosphatase 114 Units/L (34-104); Aspartate Amino Transferase 7 Units/L (13-39); BUN/Creatinine Ratio 13 (6-26); Bilirubin,Total 0.3 mg/dL (0.3-1.0); Blood Urea Nitrogen 11 mg/dL (6-20); Carbon Dioxide 29 mEq/L (23-29); Chloride 98 mEq/L (98-107); Globulin 2.5 g/dL (2.4-3.5); Glucose 292 mg/dL (70-105); Osmolality,Calculated 286 (280-300); Potassium 3.9 mEq/L (3.5-5.1); Sodium 133 mEq/L (136-145); Total Protein 6.3 g/dL (6.4-8.9); eGFR For African Americans > 60 (> 60); eGFR For Non-African Americans > 60 (> 60)
[2017-07-19] MEDS ORDERED: *HR* HYDROcodone/Acet 10/325 mg TABLET PO ONE (21:48)
[2017-07-19] MEDS ORDERED: Ibuprofen 800 MG TABLET PO ONE (21:48)
[2017-07-19] MEDS ORDERED: Dextrose Gel 15 GM/37.5 ML TUBE PO PRN ×2 (22:27)
[2017-07-19] MEDS ORDERED: *HR* Dextrose 50 % in Water (Syg) 50 ML SYRINGE IVP PRN (22:27)
[2017-07-19] MEDS ORDERED: D5% in Water 1,000 ML IVC PRN (22:27)
--- NOTE | 2017-07-19 22:49 | Internal Med History&Physical ---
"<Yaw Valiente - Last Filed: 07/19/17 22:59> Date of Encounter: 07/19/17 Time of Encounter: 22:43 Assessment and Plan (1) Diabetic foot infection Current visit: Yes Status: Acute - Blood culture pending, continue current antibiotics with Zosyn. - Hgb A1c 9.5, indicating poor blood glucose control. Will adjust diabetic insulin dose to achieve more tight blood sugar control. - Customer Engagement Representative consult. - Wound care education (2) CAD in [place] artery Current visit: No Status: Chronic - No chest pain, continue home medicine. -Smoke cessation education. (3) HTN (hypertension) Current visit: No Status: Chronic - BP stable, continue home medication. Qualifiers: Hypertension type: essential hypertension Qualified Code(s): I10 - Essential (primary) hypertension (4) DM2 (diabetes mellitus, type 2) Current visit: No Status: Chronic - Continue home Lantus and insulin sliding scale, Hold metformin. - Adjust home insulin dose to achieve better blood sugar control. Qualifiers: Diabetes mellitus complication status: with skin complications Diabetes mellitus residential insulin use: with residential use Qualified Code(s): E11.620 - Type 2 diabetes mellitus with diabetic dermatitis; Z79.4 - terminal manager (current ) use of insulin; Z79.4 - terminal manager (current) use of insulin; Z79.4 - [facility] (current) use of insulin; Z79.4 - terminal manager (current) use of insulin Internal Medicine - H&P: HPI Admitted From: Emergency Dept Plans for Post Hospital Care: Home History of present illness: Mr. Green is a 51 year old male past medical history of diabetes, CAD, hypertension, and smoker who presented to the ED with the left plantar diabetic ulcer. He reported that he had noticed the left plantar ulcer several months ago. He has been trying hard to control blood sugar but his blood sugar is always above 200. He reported the foot ulcer has been stable without increase of size until the beginning of last week, when he noticed that the skin around the ulcer was becoming red, warm, and painful to touch. This morning he noticed scant amount of yellow drainage coming coming out of the wound, which prompted him to go to ED for evaluation. He denies fever, chills, night sweats. He has no chest pain , shortness of breath, or palpitation. At the ED, his vital signs were stable, lab results were unremarkable. He received 1 dose of Zosyn IV. He will be admitted to the inpatient service for further treatment. | Past Med Surg Social Fam HX - Past Medical History Medical history: coronary artery disease, diabetes, myocardial infarction Psychiatric history: anxiety, depression - Past Surgical History Surgical History: angioplasty/stent (2014 ([facility]) and prior to that was in [place]), herniorrhaphy, orthopedic, other - Social History Smoking Status: Current every day smoker Smokeless Tobacco Status: No Alcohol use: none Drug use: none Internal Medicine - H&P: Meds Amitriptyline [Elavil] 100 mg PO HS 04/06/17 [History] Aspirin [Lo-Dose Aspirin EC] 81 mg PO DAILY 04/06/17 [History] Atorvastatin Calcium [Lipitor] 80 mg PO HS 04/06/17 [History] Citalopram [CeleXA] 20 mg PO DAILY 04/06/17 [History] Clopidogrel [Plavix] 75 mg PO DAILY 04/06/17 [History] Cyclobenzaprine HCl 5 mg PO TID PRN 04/06/17 [History] Exenatide Microspheres [Bydureon Pen] 2 mg SQ MAST 04/06/17 [History] Gabapentin [Neurontin] 600 mg PO BID 04/06/17 [History] Insulin Glargine [Lantus] 50 unit SQ BID PRN 04/06/17 [History] Lisinopril [Zestril] 10 mg PO DAILY 04/06/17 [History] Metoprolol XL (24 HR) Succ [Toprol Xl] 25 mg PO DAILY 04/06/17 [History] hydrOXYzine HCl [Hydroxyzine HCl] 25 mg PO DAILY 04/06/17 [History] Ciprofloxacin HCl [Cipro] 500 mg PO BID #14 tablet 04/09/17 [Rx] Docusate [Colace] 100 mg PO BID #60 capsule 04/09/17 [Rx] HYDROcodone/Acet 10/325 mg [[place] 10-325 mg] 1 tab PO Q4HR PRN #42 tab 04/09/17 [Rx] metroNIDAZOLE [Flagyl] 500 mg PO TID #21 tablet 04/09/17 [Rx] Tramadol HCl [Ultram] 50 mg PO TID PRN #9 tab 06/21/17 [Rx] 3 Allergy/AdvReac Type Severity Reaction Status Date / Time No Known Allergies Allergy Verified 07/19/17 19:23 All Systems PM: A 10-system review of systems was performed and is negative for pertinent findings except as documented above in the HPI. Review of systems: REVIEW OF SYSTEMS: CONSTITUTIONAL: No weight loss, fever, chills, weakness or fatigue. HEENT: Eyes: No visual loss, blurred vision, double vision or yellow sclerae. Ears, Nose, Throat: No hearing loss, sneezing, congestion, runny nose or sore throat. SKIN: see HPI. CARDIOVASCULAR: No chest pain, chest pressure or chest discomfort. No palpitations or edema. RESPIRATORY: No shortness of breath, cough or sputum. GASTROINTESTINAL: No anorexia, nausea, vomiting or diarrhea. No abdominal pain or blood. GENITOURINARY: No dysuria, urgency, or frequency. NEUROLOGICAL: No headache, dizziness, syncope, paralysis, ataxia, numbness or tingling in the extremities. No change in bowel or bladder control. MUSCULOSKELETAL: No muscle, back pain, joint pain or stiffness. HEMATOLOGIC: No anemia, bleeding or bruising. LYMPHATICS: No enlarged nodes. No history of splenectomy. PSYCHIATRIC: No history of depression or anxiety. ENDOCRINOLOGIC: No reports of sweating, cold or heat intolerance. No polyuria or polydipsia. - Constitutional Vitals: Temp Pulse Resp BP Pulse Ox 98.0 F 16 20 140/96 96 07/19/17 19:23 07/19/17 21:47 07/19/17 22:41 07/19/17 22:41 07/19/17 21:47 Exam: PHYSICAL EXAMINATION: GENERAL APPEARANCE: The patient is alert, oriented and in no acute distress. HEENT: Head is normocephalic. The sinuses are nontender. Pupils are equal and reactive. The nares are patent. Oropharynx clear without lesions. NECK: Supple without lymphadenopathy. HEART: Regular rate and rhythm. LUNGS: No crackles or wheezes are heard. ABDOMEN: Soft, nontender, nondistended with good bowel sounds heard. Inguinal area is normal. EXTREMITIES: Without cyanosis, clubbing or edema. NEUROLOGICAL: Gross nonfocal. SKIN: left plantar small ulcer with scant drainage. Skin around is erythematous. Internal Med - H&P Results - Labs CBC & Chem 7: 07/19/17 21:06 07/19/17 21:06 <Chel Cain - Last Filed: 07/20/17 01:57> Date of Encounter: 07/20/17 Time of Encounter: 01:00 Internal Medicine - H&P: HPI History of present illness: Mr. Green is a 51 year old male All Systems PM: A 10-system review of systems was performed and is negative for pertinent findings except as documented above in the HPI. - Constitutional Vitals: Temp Pulse Resp BP Pulse Ox 98.4 F 84 15 120/78 93 07/20/17 00:40 07/20/17 00:40 07/20/17 00:40 07/20/17 00:40 07/20/17 00:40 Internal Med - H&P Results - Labs CBC & Chem 7: 07/19/17 21:06 07/19/17 21:06 - Attending Attestation I examined this patient and my medical decision-making was reviewed with the Nurse Practitioner, Yony Valiente. I agree with the documented findings, disposition and treatment plan as described except to the extent set forth below. 51-year-old male patient with history of type 2 diabetes mellitus, hypertension , coronary artery disease presented to ER with complaints of left foot pain and swelling along with redness. Patient has been dealing with a left foot plantar ulcer for several months but over the past week has noted increased pain and swelling in this region along with redness involving the dorsal surface of the left foot. He denies any fever or chills. He has been trying to open up the wound by himself at home. For his diabetes, patient takes Lantus 16 units twice daily and is also on exenatide once weekly. On examination, patient is admitted, and swelling involving his left foot dorsal surface along with a plantar wound with scabbing that appears dry but tender with some swelling underneath. Diabetic foot infection with cellulitis: Will treat with empiric broad-spectrum antibiotics. Consult podiatry. Diabetes mellitus type 2: Monitor blood sugars. Continue home insulin regimen. Diabetic diet. Coronary artery disease: Continue home medications including aspirin, Plavix, lisinopril and metoprolol. Essential hypertension: Controlled. Continue medications. Monitor blood pressure. DVT prophylaxis with subcutaneous heparin"
[2017-07-19] MEDS ORDERED: NON-FORMULARY MEDICATION 1 EACH EACH (Insulin Glargine [Lantus] 50 UNIT) SQ PRN (23:03)
[2017-07-19] MEDS ORDERED: traMADol 50 MG TABLET PO PRN (23:03)
[2017-07-19] MEDS: Vancomycin 2,000 MG in D5% in Water 500 ML IVPB SCH (23:48)
[2017-07-20] MEDS ORDERED: Insulin DETEMIR 100 UNIT/ML X5UNITS SQ ONE (00:56)
[2017-07-20] MEDS: *HR* HYDROcodone/Acet 10/325 mg TABLET PO PRN ×2 (01:11→21:39)
[2017-07-20] MEDS: Piperacillin/Tazobactam 3.375 GM/200 ML BAG IVPB SCH ×3 (04:47→21:32)
[2017-07-20] MEDS: *HR* Heparin 5,000 UNIT/ML VIAL SQ SCH ×2 (04:47→17:05)
[2017-07-20] MEDS ORDERED: Vancomycin 1,000 MG in D5% in Water 250 ML IVPB SCH (06:00)
[2017-07-20] MEDS: hydrOXYzine pamoate 25 MG CAPSULE PO SCH (08:52)
[2017-07-20] MEDS: Aspirin Enteric Coated 81 MG Tablet PO SCH (08:52)
[2017-07-20] MEDS: Gabapentin 300 MG CAPSULE PO SCH ×2 (08:53→21:33)
[2017-07-20] MEDS: Insulin DETEMIR 100 UNIT/ML X5UNITS SQ SCH ×2 (08:58→21:40)
[2017-07-20] MEDS: Insulin LISPRO 300 UNITS/3 ML VIAL SQ SCH ×3 (08:58→17:39)
[2017-07-20] MEDS: Vancomycin 2,000 MG in D5% in Water 500 ML IVPB SCH (12:58)
[2017-07-20] MEDS: Metoprolol XL (24 HR) Succ 25 MG TAB.ER.24H PO SCH (12:59)
--- NOTE | 2017-07-20 13:21 | Podiatry Consult Note ---
Date of Encounter: 07/21/17 Time of Encounter: 12:00 Assessment and Plan (1) Abscess of foot Current visit: Yes Status: Acute Assessment: Hyperkeratosis and abscess to plantar aspect of left foot Plan: Sharp debridement of hyperkeratosis to foot releasing purulent drainage from underlying abscess - small jose made 0.6cm in length to release any further drainage. Wound bed cleansed and irrigated thoroughly Thick yellow drainage noted- cultures obtained wound bed debrided and cleansed using sterile curette- no areas of tunneling or sinus tracts noted at this time Wound bed cleansed and irrigated thoroughly Maxsorb AG and 4x4 applied at this time Will allow patient to eat- no appearance for need of surgical debridement today however we will obtain MRI of left foot to evaluate for any further abscess formation and YAIR's to evaluate blood flow and determine need for possible formal I&D on . Patient has known hx of MRSA- History of Present Illness HPI: Mr. Green is a 51 year old male admitted for left foot pain. Patient has known hx of uncontrolled DM, CAD,HTN and smoker. Patient states that pain in his foot started less than a week ago. Patient denies any known fevers or chills. Denies any known trauma to foot however reports he is neuropathic and does not feel much to his feet. Patient also concerned that he has had multiple small abscesses to his body over the last few years, states they have typically came back has MRSA. Patient rates pain to foot as 10/10. Patients is at bedside , Past Med Surg Social Fam HX - Past Medical History Medical history: coronary artery disease, diabetes, myocardial infarction Psychiatric history: anxiety, depression - Past Surgical History Surgical History: angioplasty/stent, herniorrhaphy, orthopedic, other - Social History Smoking Status: Current every day smoker Packs per day: 2 Smokeless Tobacco Status: No Alcohol use: none Drug use: none - Family History Mother History Unknown: Yes Father Adopted: [place]: Dwayne Green Age: 36 Living Status: Age at : 36 Cause of : Heart attack Hx Family Cardiac Disorders: Yes (Massive heart attack at 36 years old) Medications and Allergies Amitriptyline [Elavil] 100 mg PO HS 04/06/17 [History] Aspirin [Lo-Dose Aspirin EC] 81 mg PO DAILY 04/06/17 [History] Atorvastatin Calcium [Lipitor] 80 mg PO HS 04/06/17 [History] Clopidogrel [Plavix] 75 mg PO DAILY 04/06/17 [History] Cyclobenzaprine HCl 5 mg PO TID PRN 04/06/17 [History] Exenatide Microspheres [Bydureon Pen] 2 mg SQ MAST 04/06/17 [History] Gabapentin [Neurontin] 600 mg PO TID 04/06/17 [History] Insulin Glargine [Lantus] 60 unit SQ BID PRN 04/06/17 [History] Lisinopril [Zestril] 10 mg PO DAILY 04/06/17 [History] hydrOXYzine HCl [Hydroxyzine HCl] 25 mg PO DAILY PRN 04/06/17 [History] BuPROPion XL (24 HR) [Wellbutrin XL] 150 mg PO DAILY 07/20/17 [History] Canagliflozin [Invokana] 100 mg PO DAILY 07/20/17 [History] Escitalopram [Lexapro] 20 mg PO DAILY 07/20/17 [History] Metoprolol [Lopressor] 25 mg PO BID 07/20/17 [History] 3 Allergy/AdvReac Type Severity Reaction Status Date / Time No Known Allergies Allergy Verified 07/19/17 19:23 All Systems Reviewed: A 10-system review of systems was performed and is negative for pertinent findings except as documented above in the HPI. Physical Exam - Constitutional Vitals: Temp Pulse Resp BP Pulse Ox 97.4 F L 88 16 125/81 96 07/20/17 12:43 07/20/17 12:43 07/20/17 12:43 07/20/17 12:43 07/20/17 12:43 Exam: General Examination: CONSTITUTIONAL: Alert, oriented, in no acute distress, non-toxic. EXTREMITIES: CFT 3 seconds all toes. Edema +1 and pedal pulses palpable DP/PT SKIN: . plantar aspect of left foot submetatarsal head #4 there is a noted large area of hyperkeratosis. Patient reports this is his focal area of pain. There is tenderness to palpation. There is minimal noted warmth or edema to area. There is minimal erythema. There is a slight fluctuance with palpation of the hyperkeratotic area which is concerning for underlying abscess. paring of hyperkeratosis was complete. Upon paring lesion there was a release of thick yellow purulent drainage. A further small vertical incision was made to allow for accurate assessment of underlying ulceration and drainage of abscess. It is a 0.3 cm undermining circumferentially around ulceration. There does not appear to be any areas of sinus tracking or tunneling within the wound bed. There is healthy granulation tissue noted to wound bed. NEUROLOGIC: Diminished Sensation to light and moderate touch. Patient has a history of known diabetic neuropathy Results - Labs Result Diagrams: 07/19/17 21:06 07/21/17 10:31 Labs: Abnormal lab results ESR 18 mm/hr (0-10) H 07/20/17 04:30 Sodium 133 mEq/L (136-145) L 07/19/17 21:06 Glucose 292 mg/dL (70-105) H 07/19/17 21:06 POC Glucose 326 (58-89) H 07/20/17 07:40 Hemoglobin A1c 9.5 % (-5.6) H 07/19/17 21:06 AST 7 Units/L (13-39) L 07/19/17 21:06 Alkaline Phosphatase 114 Units/L (34-104) H 07/19/17 21:06 C-Reactive Protein 15 mg/L (Less than 10) H 07/20/17 04:30 Serum Total Protein 6.3 g/dL (6.4-8.9) L 07/19/17 21:06 All other labs normal. Consult Discharge Plan - Plan Referrals: Mao Huff MD [Primary Care Provider] -
--- NOTE | 2017-07-20 16:26 | Internal Med Progress Note ---
Date of Encounter: 07/20/17 Time of Encounter: 16:23 - Assessment and plan (1) Diabetic foot infection Current Visit: Yes Status: Acute Assessment and plan: Continue broad-spectrum antibiotic coverage. Continue aggressive diabetes control appreciate podiatry follow-up. Pending MRI to rule out osteomyelitis. Bedside incision and drainage done await cultures. (2) DM2 (diabetes mellitus, type 2) Current Visit: No Status: Chronic Qualifiers: Diabetes mellitus complication status: with skin complications Diabetes mellitus complication detail: with other skin ulcer Diabetes mellitus terminal manager insulin use: with terminal manager use Qualified Code(s): E11.622 - Type 2 diabetes mellitus with other skin ulcer; Z79.4 - nursing home (current) use of insulin; Z79.4 - terminal manager (current) use of insulin; Z79.4 - terminal manager (current ) use of insulin; Z79.4 - terminal manager (current) use of insulin - Time Spent With Patient 25 - 35 minutes - Subjective Interval history: Patient seen and examined right after debridement was done by podiatry. Patient states he tolerated the procedure well and has been his well- controlled. He denies any new fever or chills at this time - Constitutional Vitals: Temp Pulse Resp BP Pulse Ox 97.4 F L 88 16 125/81 96 07/20/17 12:43 07/20/17 12:43 07/20/17 12:43 07/20/17 12:43 07/20/17 12:43 Exam: General , Alert , oriented, moderate distress HEENT- PERRLA. EOMI CVS- S1S2 N, No Murmurs, Rubs, gallops, No JVD RS- CTA Bilaterally. No rales no Rhonchi heard Abdomen- Soft NT ND, bowel sounds heard across all 4 quadrants Neuro- No Focal deficits appreciated, CN 2-12 intact, Motors- power 5/5 UE, 5/5 LE Bilaterally, Sensations intact Extremeties- left foot bandaged. Not removed due to patient preference Internal Medicine: Result - Labs CBC & Chem 7: 07/19/17 21:06 07/19/17 21:06 - ABG Interpretation ABG results: PT/INR, D-dimer PT 10.3 Seconds (9.4-12.1) 07/19/17 21:06 Consult Discharge Plan - Plan Referrals: Mao Huff MD [Primary Care Provider] -
[2017-07-20] MEDS ORDERED: Piperacillin/Tazobactam 3.375 GM/200 ML BAG IVPB ONE (20:29)
[2017-07-20] MEDS ORDERED: Insulin LISPRO 300 UNITS/3 ML VIAL SQ SCH (21:00)
[2017-07-21] MEDS ORDERED: Vancomycin 1,250 MG in D5% in Water 250 ML IVPB SCH
[2017-07-21] MEDS: Piperacillin/Tazobactam 3.375 GM/200 ML BAG IVPB SCH ×2 (05:10→12:43)
[2017-07-21] MEDS: *HR* HYDROcodone/Acet 10/325 mg TABLET PO PRN (05:12)
[2017-07-21] MEDS: *HR* Heparin 5,000 UNIT/ML VIAL SQ SCH (05:13)
[2017-07-21] MEDS: Insulin LISPRO 300 UNITS/3 ML VIAL SQ SCH ×3 (08:54→17:07)
[2017-07-21] MEDS: Gabapentin 300 MG CAPSULE PO SCH (08:55)
[2017-07-21] MEDS: hydrOXYzine pamoate 25 MG CAPSULE PO SCH (08:55)
[2017-07-21] MEDS: Metoprolol XL (24 HR) Succ 25 MG TAB.ER.24H PO SCH (08:55)
[2017-07-21] MEDS: Aspirin Enteric Coated 81 MG Tablet PO SCH (08:55)
[2017-07-21] MEDS: Insulin DETEMIR 100 UNIT/ML X5UNITS SQ SCH (08:57)
--- NOTE | 2017-07-21 10:23 | Internal Med Progress Note ---
Date of Encounter: 07/21/17 Time of Encounter: 10:21 - Assessment and plan (1) Diabetic foot ulcer Current Visit: Yes Status: Acute Assessment and plan: According to podiatry patient has access to the plantar aspect of the left foot. Patient underwent debridement and drainage yesterday. Reports improvement in left foot pain. Patient has been afebrile, heart rate less than 100 for the past 48 hours. ABIs within normal limits. MRI of foot does not show evidence of osteomyelitis. Initial Gram stain was negative. Cultures are pending. Patient is on vancomycin and Zosyn day 2. We will de-escalate according to sensitivities. Qualifiers: Diabetic foot ulcer location: toe Diabetes mellitus type: type 2 Laterality: left Non-pressure ulcer stage: with muscle involvement without evidence of necrosis Qualified Code(s): E11.621 - Type 2 diabetes mellitus with foot ulcer; L97.525 - Non-pressure chronic ulcer of other part of left foot with muscle involvement without evidence of necrosis; L97.525 - Non- pressure chronic ulcer of other part of left foot with muscle involvement without evidence of necrosis (2) Uncontrolled diabetes mellitus Current Visit: Yes Status: Acute Assessment and plan: Uncontrolled diabetes mellitus Hemoglobin A1c of 9.5. Patient is on insulin Lantus at home. Patient regimen includes Levemir 50 units subcutaneous twice a day with sliding scale. Patient's glucose levels are still elevated with this regimen We will add 10 units Humalog before meal time. Continue diabetic diet Qualifiers: Diabetes mellitus type: type 2 Diabetes mellitus complication status: with skin complications Diabetes mellitus complication detail: with foot ulcer Diabetes mellitus buttermaker insulin use: with shelter use Qualified Code(s) : E11.621 - Type 2 diabetes mellitus with foot ulcer; E11.65 - Type 2 diabetes mellitus with hyperglycemia; E11.65 - Type 2 diabetes mellitus with hyperglycemia; E11.65 - Type 2 diabetes mellitus with hyperglycemia; E11.65 - Type 2 diabetes mellitus with hyperglycemia; L97.509 - Non-pressure chronic ulcer of other part of unspecified foot with unspecified severity; L97.509 - Non -pressure chronic ulcer of other part of unspecified foot with unspecified severity; L97.509 - Non-pressure chronic ulcer of other part of unspecified foot with unspecified severity; L97.509 - Non-pressure chronic ulcer of other part of unspecified foot with unspecified severity; Z79.4 - buttermaker (current) use of insulin; Z79.4 - buttermaker (current) use of insulin; Z79.4 - buttermaker ( current) use of insulin; Z79.4 - [facility] (current) use of insulin (3) Coronary artery disease Current Visit: Yes Status: Acute (4) Essential hypertension Current Visit: Yes Status: Acute (5) Diabetic neuropathy Current Visit: Yes Status: Acute - Subjective Interval history: Patient reports significant reduction in pain after debridement yesterday. Reports he can walk on his foot. Trinka [place] thick yellow drainage was noted. Patient had ABIs are normal. MRI of the right lower extremity did not show evidence of osteomyelitis. - Constitutional Vitals: Temp Pulse Resp BP Pulse Ox 98.4 F 83 16 110/68 93 07/21/17 08:56 07/21/17 08:56 07/21/17 08:56 07/21/17 08:56 07/21/17 08:56 - Other Additional findings: General: Pleasant without distress Heart: Regular rate and rhythm with no murmur Lungs: Clear to auscultation bilaterally Abdomen: Soft nontender, nondistended positive bowel sounds Skin: warm and dry Extremities: Absent pedal edema, left foot dressed, without drainage. Neuro: Alert and oriented 3 Vascular: Pedal and radial pulses 2 out of 4 Internal Medicine: Result - Labs CBC & Chem 7: 07/19/17 21:06 07/19/17 21:06 - ABG Interpretation ABG results: PT/INR, D-dimer PT 10.3 Seconds (9.4-12.1) 07/19/17 21:06 - Impressions Impressions Foot MRI 07/20/17 13:54 IMPRESSION: 1. No osteomyelitis. 2. Suspected very small shallow soft tissue ulceration plantar to the 4th proximal phalanx. Mild forefoot subcutaneous edema compatible with cellulitis. No drainable fluid collection. 3. 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 D/ / Kevin Lind MD / Kevin Lind MD Interpreting Provider: Kevin Lind MD Consult Discharge Plan - Plan Referrals: Mao Huff MD [Primary Care Provider] -
[2017-07-21 11:47] LABS: eGFR For African Americans > 60 (> 60); eGFR For Non-African Americans > 60 (> 60)
[2017-07-21] MEDS ORDERED: Vancomycin 1,750 MG in D5% in Water 500 ML IVPB SCH (12:00)
[2017-07-21] MEDS ORDERED: Insulin LISPRO 300 UNITS/3 ML VIAL SQ SCH (12:00)
--- NOTE | 2017-07-21 12:30 | Procedure Note ---
Date of procedure: 07/20/17 Pre-op diagnosis: left foot abscess Post-op diagnosis: same Procedure: I&D at bedside of abscess of left foot following paring of hyperkeratotic skin lesion Cleansed lesion with alcohol painted with betadine- patient is neuropathic- While at bedside to complete sharp debridement of hyperkeratosis using #15 sterile blade to foot there was a release of purulent drainage from underlying abscess - small vertical jose was made with #15 blade- 0.6cm in length- to release any further drainage. Wound bed cleansed and irrigated thoroughly using sterile saline Thick yellow drainage noted- cultures obtained wound bed debrided and cleansed using sterile curette- no areas of tunneling or sinus tracts noted at this time Maxsorb AG and 4x4 applied at this time Patient tolerated well. No blood loss. No bleeding at completion of procedure. Patient notes immediate relief of pain. Anesthesia: none Surgeon: Carleen Mckeon Was there an school bus driver/teacher assistant present: No Estimated blood loss (cc): 0 Specimen: Purulent drainage sent for culture Condition: stable Disposition: floor
[2017-07-21] MEDS ORDERED: Insulin LISPRO 300 UNITS/3 ML VIAL SQ ONE ×2 (12:42→13:58)
--- NOTE | 2017-07-21 13:40 | Discharge Summary ---
<Bret Pineda - Last Filed: 07/21/17 13:38> Date of Encounter: 07/21/17 Time of Encounter: 10:00 - Discharge Diagnosis (1) Diabetic foot ulcer Priority: Primary Status: Acute Qualifiers: Diabetic foot ulcer location: toe Diabetes mellitus type: type 2 Laterality: left Non-pressure ulcer stage: with muscle involvement without evidence of necrosis Qualified Code(s): E11.621 - Type 2 diabetes mellitus with foot ulcer; L97.525 - Non-pressure chronic ulcer of other part of left foot with muscle involvement without evidence of necrosis; L97.525 - Non- pressure chronic ulcer of other part of left foot with muscle involvement without evidence of necrosis (2) Uncontrolled diabetes mellitus Priority: Primary Status: Acute Qualifiers: Diabetes mellitus type: type 2 Diabetes mellitus complication status: with skin complications Diabetes mellitus complication detail: with foot ulcer Diabetes mellitus prison insulin use: with predatory animal exterminator use Qualified Code(s) : E11.621 - Type 2 diabetes mellitus with foot ulcer; E11.65 - Type 2 diabetes mellitus with hyperglycemia; Z79.4 - exterminator helper termite (current) use of insulin; Z79.4 - halfway (current) use of insulin; Z79.4 - halfway (current) use of insulin ; E11.65 - Type 2 diabetes mellitus with hyperglycemia; E11.65 - Type 2 diabetes mellitus with hyperglycemia; E11.65 - Type 2 diabetes mellitus with hyperglycemia; L97.509 - Non-pressure chronic ulcer of other part of unspecified foot with unspecified severity; L97.509 - Non-pressure chronic ulcer of other part of unspecified foot with unspecified severity; L97.509 - Non -pressure chronic ulcer of other part of unspecified foot with unspecified severity; L97.509 - Non-pressure chronic ulcer of other part of unspecified foot with unspecified severity; Z79.4 - halfway (current) use of insulin (3) Coronary artery disease Priority: Primary Status: Acute Qualifiers: Coronary Disease-Associated Artery/Lesion type: unspecified vessel or lesion type [place] vs. transplanted heart: [place] heart Associated angina: angina presence unspecified Qualified Code(s): I25.10 - Atherosclerotic heart disease of [place] coronary artery without angina pectoris (4) Essential hypertension Priority: Primary Status: Acute (5) Diabetic neuropathy Priority: Primary Status: Acute Qualifiers: Diabetes mellitus type: type 2 Diabetes mellitus complication detail: diabetic polyneuropathy Qualified Code(s): E11.42 - Type 2 diabetes mellitus with diabetic polyneuropathy - Discharge Medications Prescriptions: Amoxicillin/Clavulanate [Augmentin] 875 mg PO BIDWM #14 tablet Home Medications: Amitriptyline [Elavil] 100 mg PO HS 04/06/17 [History] Aspirin [Lo-Dose Aspirin EC] 81 mg PO DAILY 04/06/17 [History] Atorvastatin Calcium [Lipitor] 80 mg PO HS 04/06/17 [History] Clopidogrel [Plavix] 75 mg PO DAILY 04/06/17 [History] Cyclobenzaprine HCl 5 mg PO TID PRN 04/06/17 [History] Exenatide Microspheres [Bydureon Pen] 2 mg SQ MAST 04/06/17 [History] Gabapentin [Neurontin] 600 mg PO TID 04/06/17 [History] Insulin Glargine [Lantus] 60 unit SQ BID PRN 04/06/17 [History] Lisinopril [Zestril] 10 mg PO DAILY 04/06/17 [History] hydrOXYzine HCl [Hydroxyzine HCl] 25 mg PO DAILY PRN 04/06/17 [History] BuPROPion XL (24 HR) [Wellbutrin Xl] 150 mg PO DAILY 07/20/17 [History] Canagliflozin [Invokana] 100 mg PO DAILY 07/20/17 [History] Escitalopram [Lexapro] 20 mg PO DAILY 07/20/17 [History] Metoprolol [Lopressor] 25 mg PO BID 07/20/17 [History] Amoxicillin/Clavulanate [Augmentin] 875 mg PO BIDWM #14 tablet 07/21/17 [Rx] Citalopram [CeleXA] 20 mg PO DAILY tablet 07/21/17 [Rx] Docusate [Colace] 100 mg PO BID capsule 07/21/17 [Rx] HYDROcodone/Acet 10/325 mg [[place] 10-325 mg] 1 each PO Q4HR PRN tablet [Rx] Metoprolol XL (24 HR) Succ [Toprol Xl] 25 mg PO DAILY tab.er.24h 07/21/17 [Rx] Allergies/Adverse Reactions: 3 Allergy/AdvReac Type Severity Reaction Status Date / Time No Known Allergies Allergy Verified 07/19/17 19:23 Procedures/tests Complete & Pending: Procedures Performed prior 72 hours Category Date Time Status MR foot LT wo/w con [MR] Routine MRI 07/20/17 13:54 Completed YAIR [EV ankle brachial index BI] Routine Y 07/20/17 13:55 Completed Date of admission: 07/19/17 21:58 Primary care physician: Mao Huff MD Consults: 07/21/17 10:31 Consult to Payroll Bookkeeper [CONS] Routine Comment: Reason for Consult: uncontrolled diabetes Discharging clinician: Bret Pineda - Patient Status Disposition: Home, Self-Care Condition: Good Functional capacity at discharge: independent ambulation Overall status at discharge: patient is progressing back to baseline - Discharge Instructions Follow Up With: Yony Hanna [Other] - 07/28/17 10:30 am (Wound Clinic ) Mao Huff MD [Primary Care Provider] - Additional Instructions: Please return to emergency room if worsened foot pain, development of fevers, development of increased drainage or change color drainage Please take all medications prescribed: Augmentin 875 mg twice a day for 7 days Please follow-up with podiatry in 1 week for reassessment of foot wound Please follow-up with PCP 1-2 weeks Daily dressing change: cleanse with mild soap and water- apply betadine- maxsorb AG and dry bulk dressing. Wear ortho shoe while ambulating. - Diet and Activity Activity: resume usual activities as tolerated Diet: diabetic diet Interval History: Patient reports having improvement in his pain overall today, stating that following the I&D performed yesterday by podiatry, he is unable to walk on his foot without additional pain or problem. He denies having fever or chills. He denies swelling, denies erythema. Hospital course: Mr. Green is a 51 year old male with prior medical history of coronary artery disease (with prior [place]) and uncontrolled diabetes mellitus presented to [place] on 07/19/17 with complaints of painful left plantar diabetic foot ulcer. He had noticed that ulcer, that have been present for months, his started to increase in size last week and become warm, erythematous, and painful. He decided to come to the ED for further evaluation. He was started on IV Zosyn and vancomycin as well as undergoing podiatry consult. He underwent and incision and drainage yesterday which resulted in location of an abscess with yellow/ probably fluid. The fluid was cultured and patient reported significant improvement in his discomfort following the procedure. The following day the patient reports significant improvement in his pain, having decreased pressure in his foot and ankle. He states that she is interested in going home. This was discussed with podiatry who felt safe for him to be discharged with follow-up with podiatry in 1 week and continued antibiotics. - Time Spent with Patient Total time spent providing and/or coordinating discharge services: - Constitutional Vitals: Temp Pulse Resp BP Pulse Ox 97.8 F 84 16 108/73 98 07/21/17 12:18 07/21/17 12:18 07/21/17 12:18 07/21/17 12:18 07/21/17 12:18 Exam: General: Cooperative, pleasant, no acute distress, alert and oriented 3, answers questions appropriately HEENT: Normocephalic, atraumatic, Conjunctiva pink, sclera anicteric Respiratory: No accessory muscle usage, clear to auscultation bilaterally, no wheezes/rhonchi/rales appreciated Cardiovascular: Regular rate and rhythm, S1 and S2 present Extremities: Absent pedal edema, left foot dressed, without drainage Neurological: Alert and oriented 3, no facial droop, no focal deficits <Lexie Posada - Last Filed: 07/21/17 16:25> Date of Encounter: 07/21/17 - Discharge Diagnosis (1) Diabetic foot infection Status: Acute (2) DM2 (diabetes mellitus, type 2) Status: Chronic Qualifiers: Diabetes mellitus complication status: with skin complications Diabetes mellitus complication detail: with other skin ulcer Diabetes mellitus predatory animal exterminator insulin use: with prison use Qualified Code(s): E11.622 - Type 2 diabetes mellitus with other skin ulcer; Z79.4 - exterminator helper termite (current) use of insulin; Z79.4 - halfway (current) use of insulin; Z79.4 - exterminator helper termite (current ) use of insulin; Z79.4 - halfway (current) use of insulin Procedures/tests Complete & Pending: Procedures Performed prior 72 hours Category Date Time Status MR foot LT wo/w con [MR] Routine MRI 07/20/17 13:54 Completed YAIR [EV ankle brachial index BI] Routine Y 07/20/17 13:55 Completed Date of admission: 07/19/17 21:58 Primary care physician: Mao Huff MD Consults: 07/21/17 10:31 Consult to Payroll Bookkeeper [CONS] Routine Comment: Reason for Consult: uncontrolled diabetes Hospital course: Mr. Green is a 51 year old male - Time Spent with Patient Total time spent providing and/or coordinating discharge services: - Constitutional Vitals: Temp Pulse Resp BP Pulse Ox 97.8 F 84 16 108/73 98 07/21/17 12:18 07/21/17 12:18 07/21/17 12:18 07/21/17 12:18 07/21/17 12:18 - Attending Attestation I saw and evaluated the patient at bedside. I have reviewed the DC Summary note obtained and documented by the resident and personally participated in the thompson components. I have discussed the case and management of the patient's care. I agree with the findings and plan of care. The following are the thompson additions to their assessment and plan patient is cleared from podiatry standpoint for discharge. We will send him home with Augmentin course and follow-up closely on an outpatient basis next week. He has also been instructed to keep a diary of his blood sugars and check with his outpatient target network analyst for recommendations
[2017-07-21] MEDS ORDERED: 0.9 % Sodium Chloride 250 ML IVC SCH (14:00)
--- NOTE | 2017-07-21 14:10 | Podiatry Progress Note ---
Date of Encounter: 07/21/17 Time of Encounter: 13:30 - Assessment and Plan (1) Abscess of foot Current Visit: Yes Status: Acute Assessment: Hyperkeratosis and abscess to plantar aspect of left foot 07/21 Assessment complete at bedside, appearance of wound much improved from 07/20 assessment. No edema or erythema noted. There is macerated devitalized tissue surrounding wound, this was debrided at bedside- cleansed wound with alcohol, debridement of devitalized tissue complete with sterile pickups and tissue nipper. Patient tolerated well. Healthy wound bed noted. 100% healthy granulation tissue. No drainage noted. No pain with palpation Irrigated thoroughly with sterile saline Maxsorb AG and dry bulk dressing applied Patient may go home from podiatry standpoint- currently being evaluated for hyperglycemia Patient will need to go home with dressing supplies, apply betadine daily, maxsorb and dry dressing- may bathe, cleanse foot after shower to rinse foot last- educated on dressing changes and proper care at home Instructed to monitor for any worsening, clinical signs of infection, fevers, chills, n/v or flu like symptoms, increase or change in drainage or pain Patient will need to go home with ortho wedge shoe to offload pressure and promote healing Will need tight glucose control to promote healing Initial gram stain is negative - awaiting culture results - discharge on oral antibiotics per internal medicine Will need to be seen in wound care next wednesday with for evaluation and possible application of TCC. 07/20 Plan: Sharp debridement of hyperkeratosis to foot releasing purulent drainage from underlying abscess - small jose made 0.6cm in length to release any further drainage. Wound bed cleansed and irrigated thoroughly Thick yellow drainage noted- cultures obtained wound bed debrided and cleansed using sterile curette- no areas of tunneling or sinus tracts noted at this time Wound bed cleansed and irrigated thoroughly Maxsorb AG and 4x4 applied at this time Will allow patient to eat- no appearance for need of surgical debridement today however we will obtain MRI of left foot to evaluate for any further abscess formation and YAIR's to evaluate blood flow and determine need for possible formal I&D on . Patient has known hx of MRSA- Subjective Interval history: We have been following patient for a left foot abscess- I&D of abscess was performed yesterday at bedside. Patient reports today that he has no pain. Patient states he has walked and pressed around on foot and notes no pain. Patient has been afebrile <24 hours and VS normal. Patient wants to go home. It was communicated per nurse that patients latest BG was 500 and he was currently being monitored and may not be released today. Objective - Vital Signs Vital Signs: Vital Signs Temp Pulse Resp BP Pulse Ox 07/21/17 12:18 97.8 F 84 16 108/73 98 07/21/17 08:56 98.4 F 83 16 110/68 93 07/21/17 05:24 97.9 F 83 16 114/78 96 07/20/17 23:47 97.9 F 89 18 93/50 94 07/20/17 19:00 98.0 F 87 16 106/72 95 07/20/17 17:30 97.9 F 82 16 128/85 97 Intake and Output 07/20/17 07/21/17 07/21/17 23:59 07:59 15:59 Intake Total 275 / 275 450 / 450 200 / 200 Output Total 0 / 0 Balance 275 / 275 450 / 450 200 / 200 Intake: IV Fluids 200 / 200 450 / 450 200 / 200 Zosyn Premix 3.375 GM/200 ML 3. 200 / 200 200 / 200 200 / 200 375 gm In 200 ml @ 50 mls/hr IVPB Q8H ANNALISE Rx#:[id number] Vancocin 1,250 MG In Dextrose 5 250 / 250 % 250 ML @ 166.667 mls/hr IVPB Q12H ANNALISE Rx#:[id number] Oral 75 / 75 0 / 0 Output: Urine 0 / 0 Other: # Voids 1 1 Blood Glucose* 192 317 - Exam Exam: General Examination: CONSTITUTIONAL: Alert, oriented, in no acute distress, non-toxic. EXTREMITIES: CFT 3 seconds all toes. Edema +1 and pedal pulses palpable. SKIN:Small debdrided ulceration noted to sub mt #4 left foot. Minimal edema remains. no drainage present today. Debridement of remaining devitalized macerated tissue today creating shallow open wound bed. Healthy granulation tissue noted. 0.4cmx0.5cmx0.3cm- no tunneling, sinus tracts or undermining noted. No purulent drainage. No odor. scant bleeding with manipulation NEUROLOGIC: Diminished sensation to light- moderate touch - Lab Result Diagrams: 07/19/17 21:06 07/21/17 10:31 Labs: Abnormal lab results ESR 18 mm/hr (0-10) H 07/20/17 04:30 Sodium 133 mEq/L (136-145) L 07/19/17 21:06 Glucose 292 mg/dL (70-105) H 07/19/17 21:06 POC Glucose 528 (58-89) H* 07/21/17 12:23 Hemoglobin A1c 9.5 % (-5.6) H 07/19/17 21:06 AST 7 Units/L (13-39) L 07/19/17 21:06 Alkaline Phosphatase 114 Units/L (34-104) H 07/19/17 21:06 C-Reactive Protein 15 mg/L (Less than 10) H 07/20/17 04:30 Serum Total Protein 6.3 g/dL (6.4-8.9) L 07/19/17 21:06 Vancomycin Trough 9.0 mcg/mL (10-20) L 07/21/17 10:31 Microbiology, Last 48 Hours 07/20/17 14:30 Gram Stain - Final Left Foot Consult Discharge Plan - Plan Referrals: Yony Hanna [Other] - 07/28/17 10:30 am (Wound Clinic ) Mao Huff MD [Primary Care Provider] - Prescriptions: Amoxicillin/Clavulanate [Augmentin] 875 mg PO BIDWM #14 tablet
[2017-07-21 14:22] LABS: BUN/Creatinine Ratio 8 (6-26); Blood Urea Nitrogen 7 mg/dL (6-20); Calcium 8.5 mg/dL (8.6-10.3); Carbon Dioxide 28 mEq/L (23-29); Chloride 100 mEq/L (98-107); Glucose 251 mg/dL (70-105); Osmolality,Calculated 280 (280-300); Sodium 132 mEq/L (136-145); eGFR For African Americans > 60 (> 60); eGFR For Non-African Americans > 60 (> 60)
[2017-07-21 16:48] VITALS: BP 108/73
[2017-07-21] MEDS ORDERED: Aminoglycoside Consult 1 EACH MC ONE (17:46)
[2017-07-25] MEDS ORDERED: BYDUREON 2 MG SQ SCH (23:03)
== END 2017-07-21 17:47 | disposition home or self-care (01) ==
LOC: 3NENU 19:10 → EMEROO 19:10 → SUATTDRO 21:58 → 3NENU 23:05
PROVIDERS: ADMIT Internal Medicine; ATTEND Internal Medicine

== ENCOUNTER 2017-12-06 20:27 | Observation (INO) ==
[2017-12-06 21:38] LABS: Basophils % 0.4 %; Eosinophils # 0.3 K/mcL (0.0-0.6); Eosinophils % 3.3 %; Hematocrit 40.7 % (37.5-50.1); Hemoglobin 14.2 g/dL (12.9-16.9); Immature Granulocytes % 0.4 % (0-4); Lymphocytes # 2.9 K/mcL (0.6-4.6); Mean Corpuscular HGB Conc 34.9 g/dL (31.6-35.5); Mean Corpuscular Hemoglobin 29.4 pg (28.0-33.3); Mean Corpuscular Volume 84.3 fL (83.0-100.0); Monocytes # 0.6 K/mcL (0.0-1.3); Monocytes % 6.6 %; Neutrophils # 5.5 K/mcL (1.6-8.9); Platelet Count 207 K/mcL (140-400); Red Blood Count 4.83 M/mcL (4.19-5.50); Red Cell Distribution Width 13.2 % (11.5-14.5); Segmented Neutrophils % 58.3 %
[2017-12-06 22:01] LABS: BUN/Creatinine Ratio 13 (6-26); Blood Urea Nitrogen 11 mg/dL (6-20); Calcium 8.7 mg/dL (8.6-10.3); Carbon Dioxide 25 mEq/L (23-29); Chloride 99 mEq/L (98-107); Glucose 524 mg/dL (70-105); Osmolality,Calculated 293 (280-300); Potassium 4.5 mEq/L (3.5-5.1); Sodium 130 mEq/L (136-145); Troponin I < 0.03 ng/mL (< 0.04); eGFR For African Americans > 60 (> 60); eGFR For Non-African Americans > 60 (> 60)
[2017-12-06] MEDS ORDERED: Nitroglycerin 0.4 MG TAB.SUBL SL PRN (22:10)
--- NOTE | 2017-12-06 22:31 | Internal Med History&Physical ---
Date of Encounter: 12/07/17 Time of Encounter: 22:25 Internal Medicine - H&P: HPI Chief complaint: chest pain Admitted From: Emergency Dept Plans for Post Hospital Care: Home History of present illness: Mr. Green is a 52 year old male with h/o CAD s/p multiple stents, HTN, HLD, DM , smoking history who presents with chest pain. Patient was here with CP last month and had LHC and limited echo. Limited echo last month EF 45%, LHC 10/25 EF 35% and had PTCA/CHICHI to mid circ. Put Brilinta along with previous ASA. He presents again with CP. Started around 4 pm. Midsternal. 10/ in intensity and improved minimally with nitro. No radiation. Associated diaphoresis. [place] lightheaded. Was doing well yesterday doing yard work with no issues. Patient is under stress as he is threatened to get kicked out of the house as he is 3 months behind on rent. He is also applying for disability and awaiting that. 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 Denies fever, chills, nausea, vomiting, headache, diarrhea, constipation, abdominal pain, urinary symptoms, or neurological symptom. In the ED, slightly tachycardic. Labs were remarkable for glucose of 524. Trops <.03. EKG with no acute ischemic changes. Given nitro and ASA. Past Med Surg Social Fam HX - Past Medical History Medical history: arthritis, coronary artery disease, diabetes, myocardial infarction Psychiatric history: anxiety, depression - Past Surgical History Surgical History: angioplasty/stent, cholecystectomy, herniorrhaphy, orthopedic , other - Social History Smoking Status: Current every day smoker Smokeless Tobacco Status: No Alcohol use: none Drug use: none - Family History Father Adopted: No Living Status: Hx Family Cardiac Disorders: Yes (Massive heart attack at 38 years old) Internal Medicine - H&P: Meds Amitriptyline [Elavil] 100 mg PO HS 04/06/17 [History] Aspirin [Lo-Dose Aspirin EC] 81 mg PO DAILY 04/06/17 [History] Atorvastatin Calcium [Lipitor] 80 mg PO HS 04/06/17 [History] Cyclobenzaprine HCl 5 mg PO TID PRN 04/06/17 [History] Exenatide Microspheres [Bydureon Pen] 2 mg SQ MAST 04/06/17 [History] Gabapentin [Neurontin] 600 mg PO TID 04/06/17 [History] Insulin Glargine [Lantus] 60 unit SQ BID PRN 04/06/17 [History] hydrOXYzine HCl [Hydroxyzine HCl] 25 mg PO DAILY PRN 04/06/17 [History] BuPROPion XL (24 HR) [Wellbutrin Xl] 150 mg PO DAILY 07/20/17 [History] Canagliflozin [Invokana] 100 mg PO DAILY 07/20/17 [History] Escitalopram [Lexapro] 20 mg PO DAILY 07/20/17 [History] Metoprolol XL (24 HR) Succ [Toprol Xl] 25 mg PO DAILY tab.er.24h 07/21/17 [Rx] Lisinopril [Zestril] 5 mg PO DAILY #30 tablet 10/27/17 [Rx] Ticagrelor [Brilinta] 90 mg PO BID #60 tablet 10/27/17 [Rx] 3 Allergy/AdvReac Type Severity Reaction Status Date / Time No Known Allergies Allergy Verified 10/25/17 09:38 All Systems PM: A 10-system review of systems was performed and is negative for pertinent findings except as documented above in the HPI. Review of systems: All systems reviewed are negative except for as mentioned above - Constitutional Vitals: Temp Pulse Resp BP Pulse Ox 97.8 F 95 18 113/68 98 12/06/17 20:28 12/06/17 21:32 12/06/17 21:32 12/06/17 21:32 12/06/17 21:46 Exam: GEN: NAD HEENT: AT, NC, No cyanosis, oral mucosa is moist, No JVD Lymphatics: No lymphadenoapthy Eyes: Extrocular muscles intact, anicteric CVS:RRR. S1, S2, No m/r/g RESP: CTAB ABD: Soft, NT, ND, +BS EXT: No edema, No rashes, 2+ DP NEURO: Nonfocal, CN II-XII intact, No focal motor or sensory deficits Psych: Cooperative, Not anxious or depressed Internal Med - H&P Results - Labs CBC & Chem 7: 12/06/17 21:27 12/06/17 21:27 Labs: Short CBC 12/06/17 Range/Units 21:27 WBC 9.4 (4.3-11.1) K/mcL Hgb 14.2 (12.9-16.9) g/dL Hct 40.7 (37.5-50.1) % Plt Count 207 (140-400) K/mcL Neutrophils # 5.5 (1.6-8.9) K/mcL BMP 12/06/17 21:27 Sodium 130 L Potassium 4.5 Chloride 99 Carbon Dioxide 25 BUN 11 Creatinine 0.82 Glucose 524 H* Calcium 8.7 Cardiac Enzymes 12/06/17 Range/Units 21:27 Troponin I < 0.03 (< 0.04) ng/mL - Impressions ITS Impressions Chest X-Ray 12/06/17 20:30 IMPRESSION: No acute process. D/ / Brandon Urbina MD / Brandon Urbina MD Interpreting Provider: Brandon Urbina MD - Assessment and plan (1) Chest pain Current Visit: No Status: Acute Assessment and plan: Will admit to tele. Recent [facility] with stent placed. Will trend cardiac enzymes. check A1c and lipid panel. Will ask cardiology to see him since patient recently had cardiac work up. Will add SL nitro. Resume cardiac meds. Patient has been noncompliant with DAPT. Consider addition of Imdur/Ranexa Qualifiers: Chest pain type: unspecified Qualified Code(s): R07.9 - Chest pain, unspecified (2) Coronary artery disease Current Visit: No Status: Chronic Assessment and plan: c/w cardiac meds Qualifiers: Coronary Disease-Associated Artery/Lesion type: [place] artery [place] vs. transplanted heart: [place]anga heart Associated angina: with unstable angina Qualified Code(s): I25.110 - Atherosclerotic heart disease of [place] coronary artery with unstable angina pectoris (3) DM2 (diabetes mellitus, type 2) Current Visit: No Status: Chronic Assessment and plan: Uncontrolled. Glucose in 500s. Patient has not been taking any of his meds since Wednesday. Will put on high dose sliding scale and check POC in 1 hour. Resume basal insulin. 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
[2017-12-06] MEDS ORDERED: D5% in Water 1,000 ML IVC PRN (22:34)
[2017-12-06] MEDS ORDERED: Dextrose Gel 15 GM/37.5 ML TUBE PO PRN ×2 (22:34)
[2017-12-06] MEDS ORDERED: *HR* Dextrose 50 % in Water (Syg) 50 ML SYRINGE IVP PRN (22:34)
[2017-12-06] MEDS ORDERED: Acetaminophen 325 MG TABLET PO PRN (22:36)
[2017-12-06] MEDS ORDERED: Naloxone 0.4 MG/ML INJ IVP PRN (22:36)
[2017-12-06] MEDS ORDERED: 0.9 % Sodium Chloride 1,000 ML IVC ONE (22:38)
[2017-12-06] MEDS ORDERED: *HR* FentaNYL (PF) 100 MCG/2 ML VIAL IVP ONE (22:38)
[2017-12-06] MEDS ORDERED: Aspirin 81 MG TAB.CHEW PO ONE (22:50)
--- NOTE | 2017-12-06 22:58 | Emergency Department Note ---
Disposition Clinical Impression: Chest pain, rule out acute myocardial infarction Disposition: Admitted As Inpatient Condition: Fair Referrals: Mao Huff MD [Primary Care Provider] - Time of Disposition: 22:00 Chest Pain HPI - General Chief Complaint: ED Chest Pain Stated Complaint: Chest pain Time Seen by Provider: 12/06/17 21:07 Source: patient Mode of arrival: ambulatory Limitations: no limitations Vital Signs Reviewed: Yes Nursing Notes Reviewed: Yes - History of Present Illness HPI Narrative: 52-year-old male presents emergency Department with concerns of acute onset chest pain. Patient states symptoms started within the past ER prior to arrival. Patient states the pain is a central chest pressure. He has multiple cardiac risk factors had a history of coronary artery disease with 8 stents in his heart. Last stent was placed 2 months ago. Patient occasionally forgets to take his anticoagulant medication. Patient takes Relenza and aspirin daily. Patient continues to smoke cigarettes. Denies fever, chills, cough, abdominal pain, hematochezia, melena. Patient reports associated diaphoresis, shortness of breath and nausea when the pain started. Severity scale (1-10): 10 - Related Data Home Medications Medication Instructions Recorded Confirmed Amitriptyline [Elavil] 100 mg PO HS 04/06/17 10/25/17 Aspirin [Lo-Dose Aspirin EC] 81 mg PO DAILY 04/06/17 10/25/17 Atorvastatin Calcium [Lipitor] 80 mg PO HS 04/06/17 10/25/17 Cyclobenzaprine HCl 5 mg PO TID PRN 04/06/17 10/25/17 Exenatide Microspheres [Bydureon 2 mg SQ MAST 04/06/17 10/25/17 Pen] Gabapentin [Neurontin] 600 mg PO TID 04/06/17 10/25/17 Insulin Glargine [Lantus] 60 unit SQ BID PRN 04/06/17 10/25/17 hydrOXYzine HCl [Hydroxyzine HCl] 25 mg PO DAILY PRN 04/06/17 10/25/17 BuPROPion XL (24 HR) [Wellbutrin 150 mg PO DAILY 07/20/17 10/25/17 Xl] Canagliflozin [Invokana] 100 mg PO DAILY 07/20/17 10/25/17 Escitalopram [Lexapro] 20 mg PO DAILY 07/20/17 10/25/17 Previous Rx's Medication Instructions Recorded Metoprolol XL (24 HR) Succ [Toprol 25 mg PO DAILY tab.er.24h 07/21/17 Xl] Lisinopril [Zestril] 5 mg PO DAILY #30 tablet 10/27/17 Ticagrelor [Brilinta] 90 mg PO BID #60 tablet 10/27/17 Allergies Allergy/AdvReac Type Severity Reaction Status Date / Time No Known Allergies Allergy Verified 10/25/17 09:38 All systems ED: reviewed and negative except as stated. Review of Systems: As Per HPI Chest Pain PMH - Past Medical History Medical history: Reports: arthritis, coronary artery disease, diabetes, myocardial infarction Surgical history: Reports: angioplasty/stent, cholecystectomy, herniorrhaphy, orthopedic, other Psychiatric history: Reports: anxiety, depression - Social History Smoking Status: Current every day smoker Alcohol use: Reports: none Drug use: Reports: none Physical Exam General: Alert and in no acute distress Skin: Warm, dry, intact Head: Normocephalic and atraumatic Neck: Supple, trachea midline and no tenderness Cardiovascular: RRR, no murmur, normal perfusion Respiratory: CTAB, no wheezing, cough, or respiratory distress Musculoskeletal: Normal strength, no tenderness, swelling or deformity GI: Soft, nontender, nondistended. Bowel sounds present Neuro: A&O to person, place, time and situation. No focal deficits noted on exam Psychiatric: cooperative and appropriate mood and affect. - General Limitations: no limitations General appearance: alert, in no apparent distress Course Vital Signs Temperature 97.8 F 12/06/17 20:28 Pulse Rate 100 12/06/17 20:28 Respiratory Rate 20 12/06/17 20:28 Blood Pressure 138/88 12/06/17 20:28 O2 Sat by Pulse Oximetry 99 12/06/17 20:28 Temperature 97.8 F 12/06/17 20:28 Pulse Rate 97 12/06/17 22:45 Respiratory Rate 18 12/06/17 22:45 Blood Pressure 125/78 12/06/17 22:45 O2 Sat by Pulse Oximetry 98 12/06/17 22:45 Oxygen Delivery Oxygen Delivery Nasal Cannula Chest Pain - Medical Records Medical records reviewed: Yes I reviewed the patient's medical records. - Lab Data Lab results reviewed: Yes I reviewed the patient's lab results. Result diagrams: 12/06/17 21:27 12/06/17 21:27 Lab Results 12/06/17 12/06/17 Range/Units 21:27 21:27 WBC 9.4 (4.3-11.1) K/mcL RBC 4.83 (4.19-5.50) M/mcL Hgb 14.2 (12.9-16.9) g/dL Hct 40.7 (37.5-50.1) % MCV 84.3 (83.0-100.0) fL MCH 29.4 (28.0-33.3) pg MCHC 34.9 (31.6-35.5) g/dL RDW 13.2 (11.5-14.5) % Plt Count 207 (140-400) K/mcL MPV 11.0 (9.4-12.4) fL Immature Gran % 0.4 (0-4) % Seg Neutrophils % 58.3 % Lymphocytes % 31.0 % Monocytes % 6.6 % Eosinophils % 3.3 % Basophils % 0.4 % Neutrophils # 5.5 (1.6-8.9) K/mcL Lymphocytes # 2.9 (0.6-4.6) K/mcL Monocytes # 0.6 (0.0-1.3) K/mcL Eosinophils # 0.3 (0.0-0.6) K/mcL Basophils # 0.0 (0.0-0.2) K/mcL Sodium 130 L (136-145) mEq/L Potassium 4.5 (3.5-5.1) mEq/L Chloride 99 (98-107) mEq/L Carbon Dioxide 25 (23-29) mEq/L BUN 11 (6-20) mg/dL Creatinine 0.82 (0.70-1.30) mg/dL Est GFR ( Amer) > 60 (> 60) Est GFR (Non-Af Amer) > 60 (> 60) BUN/Creatinine Ratio 13 (6-26) Glucose 524 H* (70-105) mg/dL Calculated Osmolality 293 (280-300) Calcium 8.7 (8.6-10.3) mg/dL Troponin I < 0.03 (< 0.04) ng/mL - Radiology Data Radiology results reviewed: Yes I reviewed the patient's radiology results. - EKG Data EKG attestation: Yes I reviewed and interpreted this EKG. EKG results narrative: Sinus tachycardia with a rate of 101 without evidence of STEMI Heart Score - Score History: Moderately Suspicious EKG: Normal Age: 45-65 Risk Factors: Equal/Greater than 3 risk factor or history of atherosclerotic disease Troponin: Less than normal limit HEART Score Total: 4
[2017-12-07] MEDS ORDERED: *HR* LORazepam 2 MG/ML VIAL IVP ONE (00:14)
[2017-12-07] MEDS ORDERED: *HR* HYDROcodone/Acet 5/325 mg TABLET PO ONE (00:15)
[2017-12-07 06:28] LABS: Basophils % 0.3 %; Eosinophils # 0.4 K/mcL (0.0-0.6); Hematocrit 41.7 % (37.5-50.1); Hemoglobin 14.5 g/dL (12.9-16.9); Immature Granulocytes % 0.6 % (0-4); Lymphocytes # 2.8 K/mcL (0.6-4.6); Lymphocytes % 31.5 %; Mean Corpuscular HGB Conc 34.8 g/dL (31.6-35.5); Mean Corpuscular Hemoglobin 29.8 pg (28.0-33.3); Mean Corpuscular Volume 85.6 fL (83.0-100.0); Mean Platelet Volume 11.3 fL (9.4-12.4); Monocytes # 0.7 K/mcL (0.0-1.3); Monocytes % 7.4 %; Platelet Count 184 K/mcL (140-400); Red Blood Count 4.87 M/mcL (4.19-5.50); Red Cell Distribution Width 13.2 % (11.5-14.5); Segmented Neutrophils % 56.2 %
[2017-12-07 06:49] LABS: Troponin I < 0.03 ng/mL (< 0.04)
[2017-12-07 06:53] LABS: BUN/Creatinine Ratio 17 (6-26); Blood Urea Nitrogen 11 mg/dL (6-20); Calcium 8.4 mg/dL (8.6-10.3); Carbon Dioxide 25 mEq/L (23-29); Chloride 103 mEq/L (98-107); Chol/HDL Ratio 4.5 (0-4.9); Cholesterol 139 mg/dL (< 200); Glucose 307 mg/dL (70-105); HDL Cholesterol 31 mg/dL (40-59); LDL Cholesterol,Calculated 59 mg/dL (0-99); Osmolality,Calculated 289 (280-300); Potassium 4.2 mEq/L (3.5-5.1); Sodium 134 mEq/L (136-145); Triglycerides 244 mg/dL (< 150); eGFR For African Americans > 60 (> 60); eGFR For Non-African Americans > 60 (> 60)
[2017-12-07] MEDS: *HR* Heparin 5,000 UNIT/ML VIAL SQ SCH ×2 (07:16→15:02)
[2017-12-07] MEDS ORDERED: Insulin DETEMIR 100 UNIT/ML X5UNITS SQ SCH (09:00)
[2017-12-07] MEDS ORDERED: Aspirin Enteric Coated 81 MG Tablet PO SCH (09:00)
[2017-12-07] MEDS ORDERED: *HR* Ticagrelor 90 MG TABLET PO SCH (09:00)
[2017-12-07 11:01] LABS: Estimated Average Glucose 275 mg/dl; Hemoglobin A1C 11.2 %
[2017-12-07] MEDS: Insulin LISPRO 300 UNITS/3 ML VIAL SQ SCH ×2 (11:23→11:38)
--- NOTE | 2017-12-07 11:29 | Cardiology Consult Note ---
Addendum entered and electronically signed by Jared Sloan CNP 12/07/17 11:59: Hx of [place], presented in [place] his last admission 10/2017. Holter was ordered as outpt by Dr. Neville to evaluate for recurrence. No VT noted on telemetry. Original Note: Date of Encounter: 12/07/17 Time of Encounter: 11:21 Assessment and Plan (1) Chest pain Current Visit: Yes Status: Acute Episode of chest pain yesterday at rest--midsternal without radiation, associated diaphoresis. States similar to prior anginal equivalent, but not as intense, improved with nitro, but did not completely resolve until sometime in the night, no recurrence. Troponins negative x 2. No acute ischemic EKG changes. Recent [place]CA[place] [facility] [place] for in stent restenosis. There was other disease noted, not intervened on. There is a 50% stenosis in the Mid LAD, 70% stenosis in the Distal LAD. There is a 100% stenosis in the Distal Circumflex. The lesion has a SERGIO flow of 0. There is a 90% stenosis in the Proximal RCA. There is a 100% stenosis in the Mid RCA. The lesion has collaterals which feed from left to right. Missed 6 ASA/Brilinta doses due to leaving medications at home when he went out of town. Given his known remaining disease, recommend Imdur 30mg daily. Pt agreeable. Limited TTE 10/2017 EF 45%. Full echo mild-moderate MR. Recommend ambulating in hahn. If able to ambulate without chest pain, okay to d/ c home with close outpt follow-up. Qualifiers: Chest pain type: unspecified Qualified Code(s): R07.9 - Chest pain, unspecified (2) CAD in [place] artery Current Visit: Yes Status: Chronic Hx of multiple PCIs--reportedly 8. Recent [facility] with PTCA/CHICHI [place] [facility] [place] for in stent restenosis. There was other disease noted, not intervened on. Missed 6 ASA/Brilinta doses due to leaving medications at home when he went out of town. Stressed the importance of compliance with DAPT and risk for stent thrombosis if doses are missed. Given his known remaining disease, recommend Imdur 30mg daily. Pt agreeable. Resume home statin, ACEi and BB. Continue ASA, Brilinta. (3) Cardiomyopathy Current Visit: Yes Status: Chronic EF 45% on echo 10/2017. Continue BB and ACEi. Euvolemic on exam. Qualifiers: Cardiomyopathy type: ischemic Qualified Code(s): I25.5 - Ischemic cardiomyopathy Discussion w patient/family: The assessment and plan as outlined above was discussed with the patient and/or family members who expressed understanding and agreement. All questions were answered. Thank you for involving us in the care of your patient. Please call with any questions. I will discuss all the above with Dr. Puentes and make changes as necessary. History of Present Illness Consult date: 12/07/17 Consult reason: Chest pain Chief complaint: chest pain History of present illness: Mr. Green is a 52 year old male with PMH of CAD s/p multiple PCIs, HTN, HLD, DM , ICMP EF 45%, smoking history who presents with chest pain. Patient was hospitalized 10/2017, underwent C 10/25/17 with PTCA/CHICHI to [facility]. He presents with CP that started around 3PM yesterday. Midsternal/right sided. No radiation. Associated diaphoresis and lightheadedness. Was doing well yesterday doing yard work with no issues. Patient is under stress as he is 3 months behind on rent and facing possible eviction. He is also applying for disability and awaiting that. He has not taken his meds including ASA/Brilinta since Wednesday as he had been out of town and forgot to take his medication with him. Troponins negative x 2. Ekg without acute ischemic changes. Pt states nitro helped in ED, but pain resolved sometime overnight and has been chest pain free today. He wants to go home. Prior CV testing: [facility] 10/25/17: There is severe three vessel coronary artery disease. The left ventricle EF 35% Patient had successful PTCA/Drug-Eluting Stent placement in the mid Circ. There is a previous stent in Mid Circumflex with severe in-stent stenosis that was intervened on. Limited TTE 10/27/17: LVEF 45%. Even with use of Definity, not all LV wall segments were well visualized. Definity echo contrast was used. Mild to moderately dilated LV chamber size. Past Med Surg Social Fam HX - Past Medical History Medical history: arthritis, coronary artery disease, diabetes, myocardial infarction Psychiatric history: anxiety, depression - Past Surgical History Surgical History: angioplasty/stent, cholecystectomy, herniorrhaphy, orthopedic , other - Social History Smoking Status: Current every day smoker Packs per day: 1.5 Smokeless Tobacco Status: No Alcohol use: none Drug use: none - Family History Father Adopted: No Living Status: Age at : 38 Cause of : [place] Hx Family Cardiac Disorders: Yes (Massive heart attack at 36 years old) Hx Family Respiratory Disorders: No Hx Family Cancer: No Hx Family GI Disorders: No Hx Family Genitourinary Disorders: No Hx Family Endocrine Disorder: No Hx Family Musculoskeletal Disorders: No Hx Family Neuromuscular Disorders: No Hx Family Neurologic Disorders: No Hx Family HEENT Disorders: No Hx Family Autoimmune Disorders: No Hx Family Reproductive Disorders: No Hx Family Psychosocial Disorders: No Hx Family Medical Disorders: No Medications and Allergies Amitriptyline [Elavil] 100 mg PO HS 04/06/17 [History] Aspirin [Lo-Dose Aspirin EC] 81 mg PO DAILY 04/06/17 [History] Atorvastatin Calcium [Lipitor] 80 mg PO HS 04/06/17 [History] Cyclobenzaprine HCl 5 mg PO TID PRN 04/06/17 [History] Exenatide Microspheres [Bydureon Pen] 2 mg SQ MAST 04/06/17 [History] Gabapentin [Neurontin] 600 mg PO TID 04/06/17 [History] Insulin Glargine [Lantus] 60 unit SQ BID PRN 04/06/17 [History] hydrOXYzine HCl [Hydroxyzine HCl] 25 mg PO DAILY PRN 04/06/17 [History] BuPROPion XL (24 HR) [Wellbutrin Xl] 150 mg PO DAILY 07/20/17 [History] Canagliflozin [Invokana] 100 mg PO DAILY 07/20/17 [History] Escitalopram [Lexapro] 20 mg PO DAILY 07/20/17 [History] Metoprolol XL (24 HR) Succ [Toprol Xl] 25 mg PO DAILY tab.er.24h 07/21/17 [Rx] Lisinopril [Zestril] 5 mg PO DAILY #30 tablet 10/27/17 [Rx] Ticagrelor [Brilinta] 90 mg PO BID #60 tablet 10/27/17 [Rx] 3 Allergy/AdvReac Type Severity Reaction Status Date / Time chlorhexidine AdvReac Itching Verified 12/07/17 02:53 [From Grzegorz] metformin AdvReac See Verified 12/07/17 02:53 Comments All Systems Review: The remainder of the systems were reviewed and are negative - Cardiovascular Cardiovascular: as per HPI, chest pain at rest, chest pain with exertion, diaphoresis Physical Examination Vital Signs Temp Pulse Resp BP Pulse Ox 12/07/17 07:07 97.1 F L 85 18 137/86 96 12/07/17 02:20 98.0 F 87 16 131/93 97 12/06/17 23:18 97.8 F 91 16 120/82 97 12/06/17 22:45 97 18 125/78 98 12/06/17 22:40 92 18 103/75 97 12/06/17 22:36 98 18 108/69 95 12/06/17 22:30 90 18 130/98 97 12/06/17 22:00 97 18 134/90 97 12/06/17 21:46 98 12/06/17 21:32 95 18 113/68 98 12/06/17 20:28 97.8 F 100 20 138/88 99 Intake and Output 12/06/17 12/07/17 12/07/17 23:59 07:59 15:59 Output Total 450 / 450 Balance -450 / -450 Output: Urine 450 / 450 Other: Weight 128.367 kg 128.376 kg Blood Glucose* 354 261 259 Patient Weight 12/07/17 23:59 Weight 128.376 kg Vital Signs Temp Pulse Resp BP Pulse Ox 12/07/17 07:07 97.1 F L 85 18 137/86 96 12/07/17 02:20 98.0 F 87 16 131/93 97 12/06/17 23:18 97.8 F 91 16 120/82 97 12/06/17 22:45 97 18 125/78 98 12/06/17 22:40 92 18 103/75 97 12/06/17 22:36 98 18 108/69 95 12/06/17 22:30 90 18 130/98 97 12/06/17 22:00 97 18 134/90 97 12/06/17 21:46 98 12/06/17 21:32 95 18 113/68 98 12/06/17 20:28 97.8 F 100 20 138/88 99 Intake and Output 12/06/17 12/07/17 12/07/17 23:59 07:59 15:59 Output Total 450 / 450 Balance -450 / -450 Output: Urine 450 / 450 Other: Weight 128.367 kg 128.376 kg Blood Glucose* 354 261 259 Patient Weight 12/07/17 23:59 Weight 128.376 kg General: Conversant, No Apparent Distress HEENT: Atraumatic, Normocephaly, Mucus Membranes Moist Neck: No JVD, Normal carotid pulses Cardiac: Reg Rate and Rhythm, Normal S1 and S2, No Murmur Lungs: Normal Breath Sounds, No Wheeze, Rales, Rhonchi Neuro: Alert and responsive, No focal deficits noted Abdomen: Soft, Non-Tender Skin: No rashes noted on visualized skin Musculoskeletal: No Chest Wall Tenderness Extremities: No Clubbing, No Cyanosis, No Edema, Normal Pulses Results 12/07/17 05:44 12/07/17 05:44 Lab Results 12/07/17 12/07/17 05:44 05:44 WBC 8.9 Hgb 14.5 Hct 41.7 Plt Count 184 Sodium 134 L Potassium 4.2 Chloride 103 Carbon Dioxide 25 BUN 11 Creatinine 0.65 L Glucose 307 H Calcium 8.4 L Magnesium 2.0 Troponin I < 0.03 Vital Signs Temp Pulse Resp BP Pulse Ox 12/07/17 07:07 97.1 F L 85 18 137/86 96 12/07/17 02:20 98.0 F 87 16 131/93 97 12/06/17 23:18 97.8 F 91 16 120/82 97 12/06/17 22:45 97 18 125/78 98 12/06/17 22:40 92 18 103/75 97 12/06/17 22:36 98 18 108/69 95 12/06/17 22:30 90 18 130/98 97 12/06/17 22:00 97 18 134/90 97 12/06/17 21:46 98 12/06/17 21:32 95 18 113/68 98 12/06/17 20:28 97.8 F 100 20 138/88 99 Intake and Output 12/06/17 12/07/17 12/07/17 23:59 07:59 15:59 Output Total 450 / 450 Balance -450 / -450 Output: Urine 450 / 450 Other: Weight 128.367 kg 128.376 kg Blood Glucose* 354 261 259 Patient Weight 12/07/17 23:59 Weight 128.376 kg Impressions Chest X-Ray 12/06/17 20:30 IMPRESSION: No acute process. D/ / Brandon Urbina MD / Brandon Urbina MD Interpreting Provider: Brandon Urbina MD Active Medications Acetaminophen (Tylenol) 650 mg PO Q6HR PRN PRN Reason: Mild Pain/Fever Stop: 06/07/18 22:37 Aspirin (Aspirin Ec) 81 mg PO DAILY [facility] Stop: 06/08/18 09:01 Dextrose/Water (Dextrose 50% (Syg)) 25 ml IVP AD PRN PRN Reason: Hypoglycemia Stop: 06/07/18 22:35 Glucagon (Glucagen) 1 mg IM ONCE PRN PRN Reason: Hypoglycemia Stop: 06/07/18 22:35 Glucose (Gluctose) 15 gm PO ONCE PRN PRN Reason: Hypoglycemia Stop: 06/07/18 22:35 Glucose (Gluctose) 30 gm PO ONCE PRN PRN Reason: Hypoglycemia Stop: 06/07/18 22:35 Heparin Sodium (Porcine) (Heparin) 5,000 unit SQ Q8HCO [facility] Stop: 06/08/18 06:01 Last Admin: 12/07/17 07:16 Dose: Not Given Dextrose (Dextrose 5%) 1,000 mls @ 100 mls/hr IVC .Q10H PRN PRN Reason: HYPOGLYCEMIA Stop: 06/07/18 22:35 Insulin Detemir (Levemir) 30 unit SQ BID [facility] Stop: 06/08/18 09:01 Insulin Human Lispro (Humalog) 0 units SQ HS ANNALISE PRN Reason: Protocol Stop: 06/08/18 21:01 Insulin Human Lispro (Humalog) 0 units SQ TIDAC ANNALISE PRN Reason: Protocol Stop: 06/08/18 07:31 Last Admin: 12/07/17 11:23 Dose: Not Given Isosorbide Mononitrate (Imdur) 30 mg PO DAILY [facility] Stop: 06/08/18 11:31 Naloxone HCl (Narcan) 0.4 mg IVP Q2MIN PRN PRN Reason: SEE COMMENTS Stop: 06/07/18 22:37 Nitroglycerin (Nitroglycerin) 0.4 mg SL Q5MIN PRN PRN Reason: Chest Pain Stop: 06/07/18 22:11 Last Admin: 12/06/17 22:30 Dose: 0.4 mg Ticagrelor (Brilinta) 90 mg PO BID [facility] Stop: 06/08/18 09:01 - Imaging and Cardiology Echo: report reviewed Cardiac cath: report reviewed - EKG Interpretation EKG results cardiology: personally reviewed (SR, prior inferior [place]), other (12 hr tele AVG HR 87, SR, no significant pauses or arrhythmias noted) Consult Discharge Plan - Plan Referrals: Mao Huff MD [Primary Care Provider] -
[2017-12-07] MEDS ORDERED: Isosorbide MONOnitrate (24 HR) 30 MG TAB.ER.24H PO SCH (11:30)
[2017-12-07] MEDS ORDERED: Metoprolol XL (24 HR) Succ 25 MG TAB.ER.24H PO SCH (12:00)
--- NOTE | 2017-12-07 15:08 | Discharge Summary ---
- NOTES TO OUTPATIENT PROVIDER Notes to Outpatient Provider: Pt was admitted for continued chest pain after [facility] [place] last month. Pt was evaluated by cardiology, Imdur has been added, pt will have close outpatient follow up with cardiology after discharge. Date of Encounter: 12/07/17 Time of Encounter: 10:20 - Discharge Diagnosis (1) Chest pain Priority: Primary Status: Acute Assessment and Plan: Pt with recent cardiac workup with [facility] [place]. Troponins negative, EKG without ischemic changes. Per cardiology note copied: Recent PTCA/CHICHI to [facility] 10/25/17 for in stent restenosis. There was other disease noted, not intervened on. There is a 50% stenosis in the Mid LAD, 70% stenosis in the Distal LAD. There is a 100% stenosis in the Distal Circumflex. The lesion has a SERGIO flow of 0. There is a 90% stenosis in the Proximal RCA. There is a 100% stenosis in the Mid RCA. The lesion has collaterals which feed from left to right. Limited TTE in October showed EF 45%, mild-moderate MR. Pt missed DAPT for 3 days due to being out of town and forgetting medications. Cardiology has initiated Imdur 30mg po daily. Cardiology has signed off and will follow closely outpatient. Qualifiers: Chest pain type: unspecified Qualified Code(s): R07.9 - Chest pain, unspecified (2) DM2 (diabetes mellitus, type 2) Priority: Secondary Status: Chronic Assessment and Plan: Uncontrolled blood sugars, A1c > 11. Pt will need close follow up with PCP after discharge. Pt and I discussed risks of chronically elevated blood sugars. Pt has not taken any medication for 3 days prior to admission due to being out of town and forgetting his medications. A1c suggests longer course of non- compliance than 3 days, however. Continue home dose of Lantus and Bydureon. Modify diet and exercise routine. Pt would benefit from diabetes education. 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 (4) Coronary artery disease Priority: Secondary Status: Chronic Assessment and Plan: Pt denies chest pain today. See above. Continue aspirin, Lipitor, Imdur, lisinopril, beta mehnaz, Brilinta. Close follow-up with cardiology after discharge. Qualifiers: Coronary Disease-Associated Artery/Lesion type: [place] artery [place] vs. transplanted heart: [place] heart Associated angina: with unstable angina Qualified Code(s): I25.110 - Atherosclerotic heart disease of [place] coronary artery with unstable angina pectoris (5) Essential hypertension Priority: Secondary Status: Chronic Assessment and Plan: Blood pressure is well controlled in the hospital setting. Continue home medications. Hospital course: Mr. Green is a 52 year old male with past medical history including uncontrolled diabetes, hypertension, coronary artery disease, cholecystitis, tobacco abuse, diabetic neuropathy, cardiomyopathy. She presented to the emergency room with substernal chest pain, onset around 4 PM daily admission. He reported that was 10/10 in intensity and improved minimally with nitroglycerin, not completely. There is no radiation, nausea, vomiting, he did report associated diaphoresis and dizziness. She reports recent increased psychosocial stress due to financial issues. Patient reports that she [place] and did not take any of his medications including his DAPT or diabetic medications. Patient had recent ischemic workup one month ago. Limited echo at that time showed EF of 45%, same day patient had LHC that showed an EF of 35%, patient had PTCA/CHICHI to mid circumflex and was placed on Brilinta, he continued his aspirin. Patient was evaluated by cardiology today, they have added Imdur to his medication regimen and will follow him closely in the outpatient setting. Patient does deny chest pain today. This visit, patient's troponins were negative. She was elevated glucose on admission, A1c greater than 11. Patient will continue his normal antidiabetic medications, as well as his other home medications. Recommend close follow-up with primary care for modifications of diet, diabetic medications. Patient will benefit from seeing diabetes education. Vitals are stable and within normal limits, patient is afebrile, no tachycardia , normotensive, not requiring supplemental oxygen. Patient is stable and appropriate for discharge. Discharge discussed with: patient, family - Time Spent with Patient Total time spent providing and/or coordinating discharge services: Less than 30 minutes - Discharge Medications Prescriptions: Isosorbide MONOnitrate (24 HR) [Imdur] 30 mg PO DAILY #30 tab.er.24h Ticagrelor [Brilinta] 90 mg PO BID #60 tablet Home Medications: Amitriptyline [Elavil] 100 mg PO HS 04/06/17 [History] Aspirin [Lo-Dose Aspirin EC] 81 mg PO DAILY 04/06/17 [History] Atorvastatin Calcium [Lipitor] 80 mg PO HS 04/06/17 [History] Cyclobenzaprine HCl 5 mg PO TID PRN 04/06/17 [History] Exenatide Microspheres [Bydureon Pen] 2 mg SQ MAST 04/06/17 [History] Gabapentin [Neurontin] 600 mg PO TID 04/06/17 [History] Insulin Glargine [Lantus] 60 unit SQ BID PRN 04/06/17 [History] hydrOXYzine HCl [Hydroxyzine HCl] 25 mg PO DAILY PRN 04/06/17 [History] BuPROPion XL (24 HR) [Wellbutrin Xl] 150 mg PO DAILY 07/20/17 [History] Canagliflozin [Invokana] 100 mg PO DAILY 07/20/17 [History] Escitalopram [Lexapro] 20 mg PO DAILY 07/20/17 [History] Metoprolol XL (24 HR) Succ [Toprol Xl] 25 mg PO DAILY tab.er.24h 07/21/17 [Rx] Lisinopril [Zestril] 5 mg PO DAILY #30 tablet 10/27/17 [Rx] Isosorbide MONOnitrate (24 HR) [Imdur] 30 mg PO DAILY #30 tab.er.24h 12/07/17 [ Rx] Nitroglycerin 0.4 mg SL Q5MIN PRN tab.subl 12/07/17 [Rx] Ticagrelor [Brilinta] 90 mg PO BID #60 tablet 12/07/17 [Rx] Allergies/Adverse Reactions: 3 Allergy/AdvReac Type Severity Reaction Status Date / Time chlorhexidine AdvReac Itching Verified 12/07/17 02:53 [From Hibiclens] metformin AdvReac See Verified 12/07/17 02:53 Comments Date of admission: 12/06/17 22:56 Primary care physician: Mao Huff MD Discharging clinician: Raysa Weathers Anticipated date of discharge: 12/07/17 - Constitutional Vitals: Temp Pulse Resp BP Pulse Ox 97.9 F 88 18 124/75 94 12/07/17 12:00 12/07/17 12:00 12/07/17 12:00 12/07/17 12:00 12/07/17 12:00 General appearance: Present: cooperative, A&O X 3, pleasant, no acute distress, answers questions appropriately - Head Head exam: Present: atraumatic, normal inspection, normocephalic - Eye Eye exam: Present: normal appearance, conjuntiva pink, sclera anicteric - Neck Neck exam general surgery: Present: supple, trachea midline. Absent: lymphadenopathy, tenderness - Respiratory Respiratory exam: Present: CTAB. Absent: accessory muscle use, chest wall tenderness, rales, respiratory distress, rhonchi, wheezes - Cardiovascular Cardiovascular exam: Present: RRR, +S1, +S2. Absent: diastolic murmur, gallop, rubs, systolic murmur - GI/Abdominal GI/Abdominal exam: Present: normal bowel sounds, soft. Absent: distended, hepatomegaly, tenderness - Extremities Exam Extremities exam: Present: normal capillary refill, normal inspection, warm, radial pulses palpable and symmetrical. Absent: calf tenderness, cyanotic, pedal edema, tenderness - Neurological Exam Neurological exam: Present: alert, oriented X3, no focal deficits. Absent: facial droop, speech deficit - Skin Skin exam: Present: dry, intact, normal color, warm. Absent: rash - Patient Status Disposition: Home, Self-Care Condition: Good Functional capacity at discharge: independent ambulation Overall status at discharge: patient is back to baseline - Discharge Instructions Follow Up With: Mao Huff MD [Primary Care Provider] - Forms: ED Satisfaction Letter Additional Instructions: Please follow up with your PCP in the next 7-10 days for a recheck, Follow up with cardiology as scheduled. Return to the ER as needed for any other problems or concerns, or if your symptoms return or worsen. Take your medications as directed. You have to get your A1c under control, please see your PCP for adjustments to your medications and to be sent to diabetes education for diet modifications. Return to your normal activities as tolerated, modify your diet to decrease your amount of sugars and carbohydrates and increase the amount of lean meats and fresh vegetables. - Diet and Activity Activity: increase activity as tolerated Diet: diabetic diet, low fat, low cholesterol
[2017-12-07 15:38] VITALS: BP 137/84
--- NOTE | 2017-12-07 17:06 | Electrocardiograph Report ---
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
[2017-12-07] MEDS ORDERED: Insulin LISPRO 300 UNITS/3 ML VIAL SQ SCH (21:00)
== END 2017-12-07 17:05 | disposition home or self-care (01) ==
LOC: EMEROO 20:27 → 3BNU 20:27
PROVIDERS: ADMIT Internal Medicine; ATTEND Family Medicine